=== PATIENT | male | born 1945 | race Caucasian/White ===

== ENCOUNTER 2017-07-21 12:43 | Observation (INO) ==
[2017-07-21] MEDS ORDERED: *HR* FentaNYL (PF) 100 MCG/2 ML VIAL IVP ONE (13:43)
[2017-07-21] MEDS ORDERED: Ondansetron 4 MG/2 ML VIAL IVP PRN (13:43)
--- NOTE | 2017-07-21 13:48 | Emergency Department Note ---
Disposition Clinical Impression: COPD exacerbation, Hypoxia, Weakness, Acute pericardial effusion Disposition: Admitted As Inpatient Condition: Fair Time of Disposition: 20:29 Male Urogenital HPI - General Chief complaint: ED Urogenital-Male Stated complaint: "my kidneys collapsed" Time Seen by Provider: 07/21/17 12:49 Source: patient Limitations: no limitations Nursing Notes Reviewed: Yes Vital Signs Reviewed: Yes - History of Present Illness HPI Narrative: 72-year-old male complains of shortness of breath with chest tightness not pressure, back and abdominal pain, fever, chills 2 days. Patient states he has burning with urination which increases his pain symptoms from 09/22-12/23. Patient states pain is around his kidney areas radiation down to his groin across the lower parts of his abdomen. Patient states pain is been constant and is got gradually worse over the past 3 days. Patient states he has renal insufficiency stage III, and COPD on home O2 2 L. Patient has had to increase his home O2 uses a 4 L via nasal cannula. - Related Data Home Medications Medication Instructions Recorded Confirmed Albuterol Sulfate [Ventolin Hfa] 18 gm IH DAILY 05/25/17 07/21/17 Amlodipine Besylate 2.5 mg PO DAILY 05/25/17 07/21/17 Aspirin [Lo-Dose Aspirin EC] 81 mg PO DAILY 05/25/17 07/21/17 Docusate [Colace] 100 mg PO BID 05/25/17 07/21/17 Ferrous Sulfate [Iron] 325 mg PO BID 05/25/17 07/21/17 Glimepiride [Amaryl] 2 mg PO 0800 05/25/17 07/21/17 Isosorbide MONOnitrate [Isosorbide 30 mg PO DAILY 05/25/17 07/21/17 Mononitrate] Lactulose 10 gm PO DAILY 05/25/17 07/21/17 Levothyroxine [Synthroid] 100 mcg PO 0630 05/25/17 07/21/17 Metformin HCl [Fortamet] 1,000 mg PO BID 05/25/17 07/21/17 Oxycodone HCl/Acetaminophen 1 each PO QID 05/25/17 07/21/17 [Percocet 7.5-325 mg Tablet] Baclofen 20 mg PO BID 07/21/17 07/21/17 Fluticasone Propionate Nasal 2 spr NS DAILY 07/21/17 07/21/17 [Flonase] Gabapentin [Neurontin] 400 mg PO TID 07/21/17 07/21/17 Lisinopril/Hydrochlorothiazide 1 tab PO BID 07/21/17 07/21/17 [Zestoretic 20-25 mg Tablet] Metoprolol [Lopressor] 25 mg PO BID 07/21/17 07/21/17 Pramipexole Di-HCl [Pramipexole 0.5 mg PO HS 07/21/17 07/21/17 Dihydrochloride] Ranitidine HCl [Acid [employer]] 150 mg PO BID 07/21/17 07/21/17 Previous Rx's Medication Instructions Recorded Lactobacillus [Culturelle] 1 each PO BID #6 cap.sprink 05/27/17 Allergies Allergy/AdvReac Type Severity Reaction Status Date / Time No Known Allergies Allergy Unverified 01/15/16 11:30 All systems ED: reviewed and negative except as stated. Review of Systems: As Per HPI Constitutional: Reports: fever, chills. Denies: weakness ENT ED: Denies: congestion Cardiovascular: Reports: dyspnea on exertion. Denies: chest pain Respiratory: Reports: dyspnea Gastrointestinal: Reports: abdominal pain Genitourinary: Reports: urgency, dysuria Musculoskeletal: Reports: back pain. Denies: neck pain Neurological: Denies: headache Endocrine: Reports: fatigue Past Medical History - Past Medical History Attestation: Yes The following information was validated with the patient. Source: patient, nursing notes reviewed Medical history: Reports: asthma, COPD, coronary artery disease, diabetes, hyperlipidemia, hypertension, myocardial infarction, thyroid disease, other Psychiatric history: Reports: no psych history - Social History Smoking Status: Former smoker Smokeless Tobacco Status: No Alcohol use: Reports: occasionally Drug use: Reports: none Physical Exam Vital Signs Temperature 97.8 F 07/21/17 12:45 Pulse Rate 100 07/21/17 12:45 Respiratory Rate 07/21/17 12:45 Blood Pressure 130/81 07/21/17 12:45 O2 Sat by Pulse Oximetry 95 07/21/17 12:45 Temperature 97.8 F 07/21/17 12:45 Pulse Rate 100 07/21/17 12:45 Respiratory Rate 22 07/21/17 12:45 Blood Pressure 130/81 07/21/17 12:45 O2 Sat by Pulse Oximetry 95 07/21/17 12:45 Oxygen Delivery Oxygen Delivery Room Air CONSTITUTIONAL: Almost Toxic-appearing diaphoretic well-nourished male; A&O X 3 , in an apparent distress with conversational. Patient has mild conversational dyspnea and breathing at a rate of 22 breaths per minute. Patient's tachycardic at 100 bpm afebrile 97.8. Blood pressure 130/81 and O2 sat 95% RA. Supplemental O2 ordered at 4 L/m via nasal cannula for tachypnea. HEAD: Normocephalic; atraumatic EYES: PERRL, no scleral icterus NOSE: The nose is normal in appearance without rhinorrhea NECK: No JVD or distended neck veins RESP: Normal chest excursion with respiration; breath sounds clear and equal bilaterally; no wheezes, rhonchi, or rales CARD: Regular rhythm, without murmurs, rub or gallop ABD: Rounded but not distended; no reproducible tenderness of the abdomen in any quadrant, soft, without rigidity, rebound or guarding,no pulsatile mass Back: Nontender to palpation CHEST: No pain with palpation SKIN: Normal for age and race; warm and dry without diaphoresis ; no apparent lesions EXTREMITIES: Pulses are 2 plus and equal times 4 extremities, no peripheral edema or calf muscle pain - General Limitations: no limitations General appearance: alert, anxious Course - Reevaluation(s) Reevaluation #1: Labs are clinically unremarkable. Chest x-ray negative for pneumonia. Patient' s urinalysis was negative. With no source of infection and patient is clearly short of breath and hypoxic patient will be assessed for PE. CTA chest ordered. Lowered patient's oxygen requirements at 2 L via nasal cannula from 4 L and patient is maintaining O2 sat of 100% on 2 L but continues to be tachypneic. Highly concerning for PE. Time: 14:38 Reevaluation #2: No abnormalities on VBG. No hypercapnia, no acidosis. Time: 14:45 - Consultations Consultation #1: Dr. Fernandez the hospitalist as accepted patient for admission to telemetry bed in stable condition. Time: 16:34 Vital Signs Temperature 97.8 F 07/21/17 12:45 Pulse Rate 100 07/21/17 12:45 Respiratory Rate 22 07/21/17 12:45 Blood Pressure 130/81 0508/18 12:45 O2 Sat by Pulse Oximetry 95 07/21/17 12:45 Temperature 97.7 F 07/21/17 18:56 Pulse Rate 100 07/21/17 18:56 Respiratory Rate 18 07/21/17 18:56 Blood Pressure 172/81 07/21/17 18:56 O2 Sat by Pulse Oximetry 95 07/21/17 18:56 Oxygen Delivery Oxygen Delivery Nasal Cannula Urogenital-Male - MDM Narrative Medical decision making narrative: Patient is urinary symptoms of dysuria with back pain radiating around to his groin associated fevers past 3 days and shortness of breath. Also has renal insufficiency. Patient is concerning for possible pyelonephritis, nephrolithiasis, COPD exacerbation with hypoxia having to increase his home O2 usage to 4 L from 2 that may be secondary to pulmonary embolism. CT abdomen and pelvis noncontrast ordered. Labs ordered. Once renal function is assessed patient will be going for CT of the chest if no issues. Duo neb therapy 3 and 125 IV Solu-Medrol ordered for COPD exacerbation. Patient is to tachypneic and tachycardic possibly making him SIRS positive if there is an increased WBC. Patient's high risk with multiple comorbidities. Current plan is isolated source of infection and initiate antibiotic therapy if one is found. Surprisingly patient's lab workup was clinically unremarkable. Patient's urinalysis was highly unlikely that have an infection due to lack of bacteria, was positive for microscopic RBCs, protein with squamous cell contamination. With the patient still being symptomatically short of breath and severely fatigued he was sent for CTA of the chest after negative chest x-ray, as well as CT abdomen and pelvis contrast to give insight for patient's generalized abdominal pain. Findings revealed a mild to moderate pericardial effusion, no PE, and abdominal CT showed some thickening of the urinary bladder wall. Bladder wall thickening may explain patient's discomfort with urinating. Lack of infection crisis concern for possible other possibly neoplastic process and recommend further investigation with cystoscopy. Patient's breathing has improved with DuoNeb therapy and dose of IV fentanyl. Patient's hypoxia was improved and is down to 2 L via nasal cannula maintaining O2 saturation greater than 94%. However, patient remains weak and shortness of breath increases with ambulation. Patient was not ambulated around the department because his standing up made him short of breath and is a fall risk to go home. Current recommendation is for admission for further evaluation until patient is back to his baseline. A flu swab was taken as well and awaiting results. Patient understands and agrees to treatment plan for admission. Dr. Fernandez the hospitalist as accepted patient for admission telemetry bed in stable condition. - Lab Data Lab results reviewed: Yes I reviewed the patient's lab results. Lab results narrative: Short CBC 07/21/17 Range/Units 13:36 WBC 10.4 (4.3-11.1) K/mcL Hgb 12.9 (12.9-16.9) g/dL Hct 37.6 (37.5-50.1) % Plt Count 358 (140-400) K/mcL Neutrophils # 8.0 (1.6-8.9) K/mcL BMP 07/21/17 Range/Units 13:36 Sodium 134 L (136-145) mEq/L Potassium 4.3 (3.5-5.1) mEq/L Chloride 98 (98-107) mEq/L Carbon Dioxide 25 (23-29) mEq/L BUN 19 (8-23) mg/dL Creatinine 1.20 (0.70-1.30) mg/dL Glucose 154 H (70-105) mg/dL Calcium 10.1 (8.6-10.3) mg/dL Cardiac Enzymes 07/21/17 Range/Units 13:36 Troponin I < 0.03 (< 0.04) ng/mL Liver Function 07/21/17 Range/Units 13:36 Total Bilirubin 0.7 (0.3-1.0) mg/dL Direct Bilirubin 0.1 (0.0-0.2) mg/dL AST 13 (13-39) Units/L ALT 12 (7-52) Units/L Alkaline Phosphatase 87 (34-104) Units/L Albumin 4.2 (3.5-5.7) g/dL Urine 07/21/17 Range/Units 13:54 Urine Color Yellow (Yellow) Urine Clarity Clear (Clear) Urine pH 6.5 (5.0-8.0) pH Units Ur Specific [place] 1.024 (1.010-1.025) Urine Protein 100 H (Neg-Trace) mg/dL Urine Glucose (UA) Normal (Normal) mg/dL Result diagrams: 07/21/17 13:36 07/21/17 13:36 Lab Results 07/21/17 07/21/17 07/21/17 Range/Units 13:36 13:36 13:36 WBC 10.4 (4.3-11.1) K/mcL RBC 4.40 (4.19-5.50) M/mcL Hgb 12.9 (12.9-16.9) g/dL Hct 37.6 (37.5-50.1) % MCV 85.5 (83.0-100.0) fL MCH 29.3 (28.0-33.3) pg MCHC 34.3 (31.6-35.5) g/dL RDW 13.3 (11.5-14.5) % Plt Count 358 (140-400) K/mcL MPV 9.0 L (9.4-12.4) fL Immature Gran % 0.5 (0-4) % Seg Neutrophils % 76.4 % Lymphocytes % 9.3 % Monocytes % 9.3 % Eosinophils % 3.8 % Basophils % 0.7 % Neutrophils # 8.0 (1.6-8.9) K/mcL Lymphocytes # 1.0 (0.6-4.6) K/mcL Monocytes # 1.0 (0.0-1.3) K/mcL Eosinophils # 0.4 (0.0-0.6) K/mcL Basophils # 0.1 (0.0-0.2) K/mcL VBG pH (7.32-7.42) pH Units VBG pCO2 (41-51) mmHg VBG pO2 (25-50) mmHg VBG HCO3 (21-27) mEq/L Sodium 134 L (136-145) mEq/L Potassium 4.3 (3.5-5.1) mEq/L Chloride 98 (98-107) mEq/L Carbon Dioxide 25 (23-29) mEq/L BUN 19 (8-23) mg/dL Creatinine 1.20 (0.70-1.30) mg/dL Est GFR ( Amer) > 60 (> 60) Est GFR (Non-Af Amer) 60 (> 60) BUN/Creatinine Ratio 16 (6-26) Glucose 154 H (70-105) mg/dL Calculated Osmolality 283 (280-300) Lactic Acid (0.5-2.2) mmol/L Calcium 10.1 (8.6-10.3) mg/dL Phosphorus 2.5 L (2.7-4.5) mg/dL Magnesium 1.6 (1.6-2.6) mg/dL Total Bilirubin 0.7 (0.3-1.0) mg/dL Direct Bilirubin 0.1 (0.0-0.2) mg/dL Indirect Bilirubin 0.6 (0.0-1.2) mg/dL AST 13 (13-39) Units/L ALT 12 (7-52) Units/L Alkaline Phosphatase 87 (34-104) Units/L Troponin I < 0.03 (< 0.04) ng/mL B-Natriuretic Peptide 20 (Less than 100) pg/mL Serum Total Protein 7.5 (6.4-8.9) g/dL Albumin 4.2 (3.5-5.7) g/dL Globulin 3.3 (2.4-3.5) g/dL Albumin/Globulin Ratio 1.3 (1.1-2.2) Lipase 13 (11-82) Units/L Urine Color (Yellow) Urine Clarity (Clear) Urine pH (5.0-8.0) pH Units Ur Specific [place] (1.010-1.025) Urine Protein (Neg-Trace) mg/dL Urine Glucose (UA) (Normal) mg/dL Urine Ketones (Negative) mg/dL Urine Blood (Negative) Urine Nitrite (Negative) Urine Bilirubin (Negative) Urine Urobilinogen (Normal) mg/dL Ur Leukocyte Esterase (Negative) Urine Microscopic RBC (0-3) per hpf Urine Microscopic WBC (0-3) per hpf Ur Squamous Epith Cells (None-Few) per lpf Urine Bacteria (None-Few) per hpf Hyaline Casts (None-Few) per lpf Ur Culture Indicated? (NO) 07/21/17 07/21/17 07/21/17 Range/Units 13:50 13:54 14:00 WBC (4.3-11.1) K/mcL RBC (4.19-5.50) M/mcL Hgb (12.9-16.9) g/dL Hct (37.5-50.1) % MCV (83.0-100.0) fL MCH (28.0-33.3) pg MCHC (31.6-35.5) g/dL RDW (11.5-14.5) % Plt Count (140-400) K/mcL MPV (9.4-12.4) fL Immature Gran % (0-4) % Seg Neutrophils % % Lymphocytes % % Monocytes % % Eosinophils % % Basophils % % Neutrophils # (1.6-8.9) K/mcL Lymphocytes # (0.6-4.6) K/mcL Monocytes # (0.0-1.3) K/mcL Eosinophils # (0.0-0.6) K/mcL Basophils # (0.0-0.2) K/mcL VBG pH 7.39 (7.32-7.42) pH Units VBG pCO2 44 (41-51) mmHg VBG pO2 29 (25-50) mmHg VBG HCO3 26 (21-27) mEq/L Sodium (136-145) mEq/L Potassium (3.5-5.1) mEq/L Chloride (98-107) mEq/L Carbon Dioxide (23-29) mEq/L BUN (8-23) mg/dL Creatinine (0.70-1.30) mg/dL Est GFR ( Amer) (> 60) Est GFR (Non-Af Amer) (> 60) BUN/Creatinine Ratio (6-26) Glucose (70-105) mg/dL Calculated Osmolality (280-300) Lactic Acid 1.4 (0.5-2.2) mmol/L Calcium (8.6-10.3) mg/dL Phosphorus (2.7-4.5) mg/dL Magnesium (1.6-2.6) mg/dL Total Bilirubin (0.3-1.0) mg/dL Direct Bilirubin (0.0-0.2) mg/dL Indirect Bilirubin (0.0-1.2) mg/dL AST (13-39) Units/L ALT (7-52) Units/L Alkaline Phosphatase (34-104) Units/L Troponin I (< 0.04) ng/mL B-Natriuretic Peptide (Less than 100) pg/mL Serum Total Protein (6.4-8.9) g/dL Albumin (3.5-5.7) g/dL Globulin (2.4-3.5) g/dL Albumin/Globulin Ratio (1.1-2.2) Lipase (11-82) Units/L Urine Color Yellow (Yellow) Urine Clarity Clear (Clear) Urine pH 6.5 (5.0-8.0) pH Units Ur Specific [place] 1.024 (1.010-1.025) Urine Protein 100 H (Neg-Trace) mg/dL Urine Glucose (UA) Normal (Normal) mg/dL Urine Ketones Trace H (Negative) mg/dL Urine Blood Negative (Negative) Urine Nitrite Negative (Negative) Urine Bilirubin Negative (Negative) Urine Urobilinogen Normal (Normal) mg/dL Ur Leukocyte Esterase Negative (Negative) Urine Microscopic RBC 3-5 H (0-3) per hpf Urine Microscopic WBC 0-3 (0-3) per hpf Ur Squamous Epith Cells Moderate H (None-Few) per lpf Urine Bacteria None Seen (None-Few) per hpf Hyaline Casts None Seen (None-Few) per lpf Ur Culture Indicated? NO (NO) - Radiology Data Radiology results reviewed: Yes I reviewed the patient's radiology results. Chest X-Ray 07/21/17 13:42 IMPRESSION: 1. No active pulmonary disease. D/ / Alberto Chaudhry MD / Alberto Chaudhry MD Interpreting Provider: Alberto Chaudhry MD Abdomen/Pelvis CT 07/21/17 14:16 IMPRESSION: No evidence of urolithiasis or hydronephrosis/ hydroureter. Relatively symmetric perinephric fat stranding is nonspecific. Correlate for ascending urinary tract infection. There is significant urinary bladder wall thickening; correlate for cystitis. Colonic diverticulosis without diverticulitis. Small pericardial effusion partially visualized. The findings at the L2-3 level can be seen in the setting of discitis - osteomyelitis or advanced degenerative change. D/ / Twan Thompson MD / Twan Thompson MD Interpreting Provider: Twan Thompson MD Chest CTA 07/21/17 14:36 IMPRESSION: No evidence of pulmonary embolism or acute pulmonary abnormality. Small to moderate pericardial effusion. D/ / Nickolas Chambers MD / Nickolas Chambers MD Interpreting Provider: Nickolas Chambers MD - EKG Data EKG attestation: Yes I reviewed and interpreted this EKG. EKG results narrative: EKG taken 07/21/2017 at 1309 hrs. shows sinus rhythm at a rate of 92 bpm with no acute ST elevations or depressions in any leads. Previous EKG for comparison very similar in comparison to today's EKG. Attestation Statement - Attestation Attestation: I, Jorgito Sim DO, examined this patient [id number] and my medical decision-making was reviewed with Dr. Caleb Frost, Resident Physician. I agree with the documented findings, disposition and treatment plan as described except to the extent set forth below. Please see my progress notes for details.
[2017-07-21] MEDS ORDERED: methylPREDNISolone 125 MG/2 ML VIAL IVP ONE (14:00)
[2017-07-21] MEDS ORDERED: Ipratropium/Albuterol Neb 3 ML IH ONE (14:00)
[2017-07-21 14:02] LABS: Basophils # 0.1 K/mcL (0.0-0.2); Basophils % 0.7 %; Eosinophils # 0.4 K/mcL (0.0-0.6); Eosinophils % 3.8 %; Hematocrit 37.6 % (37.5-50.1); Hemoglobin 12.9 g/dL (12.9-16.9); Immature Granulocytes % 0.5 % (0-4); Lymphocytes % 9.3 %; Mean Corpuscular HGB Conc 34.3 g/dL (31.6-35.5); Mean Corpuscular Hemoglobin 29.3 pg (28.0-33.3); Mean Corpuscular Volume 85.5 fL (83.0-100.0); Monocytes % 9.3 %; Platelet Count 358 K/mcL (140-400); Red Cell Distribution Width 13.3 % (11.5-14.5); Segmented Neutrophils % 76.4 %
[2017-07-21 14:07] LABS: VBG HCO3 26 mEq/L (21-27); VBG PCO2 44 mmHg (41-51); VBG PH 7.39 pH Units (7.32-7.42); VBG PO2 29 mmHg (25-50)
[2017-07-21] MEDS: 0.9 % Sodium Chloride 1,000 ML IVC SCH ×3 (14:11→16:36)
[2017-07-21 14:17] LABS: Troponin I < 0.03 ng/mL (< 0.04)
[2017-07-21 14:23] LABS: Alanine Aminotransferase 12 Units/L (7-52); Albumin 4.2 g/dL (3.5-5.7); Albumin/Globulin Ratio 1.3 (1.1-2.2); Alkaline Phosphatase 87 Units/L (34-104); Aspartate Amino Transferase 13 Units/L (13-39); BUN/Creatinine Ratio 16 (6-26); Bilirubin,Direct 0.1 mg/dL (0.0-0.2); Bilirubin,Indirect 0.6 mg/dL (0.0-1.2); Bilirubin,Total 0.7 mg/dL (0.3-1.0); Blood Urea Nitrogen 19 mg/dL (8-23); Calcium 10.1 mg/dL (8.6-10.3); Carbon Dioxide 25 mEq/L (23-29); Chloride 98 mEq/L (98-107); Globulin 3.3 g/dL (2.4-3.5); Glucose 154 mg/dL (70-105); Lipase 13 Units/L (11-82); Magnesium 1.6 mg/dL (1.6-2.6); Osmolality,Calculated 283 (280-300); Phosphorous 2.5 mg/dL (2.7-4.5); Potassium 4.3 mEq/L (3.5-5.1); Sodium 134 mEq/L (136-145); Total Protein 7.5 g/dL (6.4-8.9); eGFR For African Americans > 60 (> 60); eGFR For Non-African Americans 60 (> 60)
[2017-07-21 14:25] LABS: Bilirubin,Urine Negative (Negative); Blood,Urine Negative (Negative); Clarity,Urine Clear (Clear); Color,Urine Yellow (Yellow); Glucose,Urine (UA) Normal (Normal); Ketones,Urine Trace mg/dL (Negative); Leukocyte Esterase,Urine Negative (Negative); Nitrite,Urine Negative (Negative); PH,Urine 6.5 pH Units (5.0-8.0); Protein,Urine 100 mg/dL (Neg-Trace); Specific Gravity,Urine 1.024 (1.010-1.025); Urobilinogen,Urine Normal (Normal)
[2017-07-21 14:28] LABS: Bacteria,Urine None Seen per hpf (None-Few); Hyaline Casts,Urine None Seen per lpf (None-Few); Squamous Epithelial Cell,Urine Moderate per lpf (None-Few); WBC,Urine 0-3 per hpf (0-3)
[2017-07-21] MEDS ORDERED: Isovue-370 500 ML INFUS..BTL IV ONE (14:36)
[2017-07-21] MEDS ORDERED: 0.9 % Sodium Chloride 1,000 ML IVC ONE (14:50)
--- NOTE | 2017-07-21 16:43 | Emergency Department Note ---
Disposition Clinical Impression: COPD exacerbation, Hypoxia, Weakness, Acute pericardial effusion Disposition: Admitted As Inpatient Condition: Fair General Adult HPI - General Chief complaint: ED Urogenital-Male Stated complaint: "my kidneys collapsed" Time Seen by Provider: 07/21/17 12:49 Source: patient Limitations: no limitations - History of Present Illness Pain Scale: 4 - Related Data Home Medications Medication Instructions Recorded Confirmed Albuterol Sulfate [Ventolin Hfa] 18 gm IH DAILY 05/25/17 07/21/17 Amlodipine Besylate 2.5 mg PO DAILY 05/25/17 07/21/17 Aspirin [Lo-Dose Aspirin EC] 81 mg PO DAILY 05/25/17 07/21/17 Docusate [Colace] 100 mg PO BID 05/25/17 07/21/17 Ferrous Sulfate [Iron] 325 mg PO BID 05/25/17 07/21/17 Glimepiride [Amaryl] 2 mg PO 0800 05/25/17 07/21/17 Isosorbide MONOnitrate [Isosorbide 30 mg PO DAILY 05/25/17 07/21/17 Mononitrate] Lactulose 10 gm PO DAILY 05/25/17 07/21/17 Levothyroxine [Synthroid] 100 mcg PO 0630 05/25/17 07/21/17 Metformin HCl [Fortamet] 1,000 mg PO BID 05/25/17 07/21/17 Oxycodone HCl/Acetaminophen 1 each PO QID 05/25/17 07/21/17 [Percocet 7.5-325 mg Tablet] Baclofen 20 mg PO BID 07/21/17 07/21/17 Fluticasone Propionate Nasal 2 spr NS DAILY 07/21/17 07/21/17 [Flonase] Gabapentin [Neurontin] 400 mg PO TID 07/21/17 07/21/17 Lisinopril/Hydrochlorothiazide 1 tab PO BID 07/21/17 07/21/17 [Zestoretic 20-25 mg Tablet] Metoprolol [Lopressor] 25 mg PO BID 07/21/17 07/21/17 Pramipexole Di-HCl [Pramipexole 0.5 mg PO HS 07/21/17 07/21/17 Dihydrochloride] Ranitidine HCl [Acid Accounting Intern] 150 mg PO BID 07/21/17 07/21/17 Previous Rx's Medication Instructions Recorded Lactobacillus [Culturelle] 1 each PO BID #6 cap.huseyinink 05/27/17 Allergies Allergy/AdvReac Type Severity Reaction Status Date / Time No Known Allergies Allergy Unverified 01/15/16 11:30 Constitutional: Reports: fever, chills. Denies: weakness ENT ED: Denies: congestion Cardiovascular: Reports: dyspnea on exertion. Denies: chest pain Respiratory: Reports: dyspnea Gastrointestinal: Reports: abdominal pain Genitourinary: Reports: urgency, dysuria Musculoskeletal: Reports: back pain. Denies: neck pain Neurological: Denies: headache Endocrine: Reports: fatigue Past Medical History - Past Medical History Medical history: Reports: asthma, COPD, coronary artery disease, diabetes, hyperlipidemia, hypertension, myocardial infarction, thyroid disease, other Psychiatric history: Reports: no psych history - Social History Smoking Status: Former smoker Smokeless Tobacco Status: No Alcohol use: Reports: occasionally Drug use: Reports: none Physical Exam - General Limitations: no limitations General appearance: alert, anxious Course Vital Signs Temperature 97.8 F 07/21/17 12:45 Pulse Rate 100 07/21/17 12:45 Respiratory Rate 22 07/21/17 12:45 Blood Pressure 130/81 07/21/17 12:45 O2 Sat by Pulse Oximetry 95 07/21/17 12:45 Temperature 97.7 F 07/21/17 18:56 Pulse Rate 100 07/21/17 18:56 Respiratory Rate 18 07/21/17 20:32 Blood Pressure 172/81 07/21/17 18:56 O2 Sat by Pulse Oximetry 96 07/21/17 20:32 Oxygen Delivery Oxygen Delivery Nasal Cannula Medical Decision Making - Lab Data Result diagrams: 07/21/17 13:36 07/21/17 13:36 Lab Results 07/21/17 07/21/17 07/21/17 Range/Units 13:36 13:36 13:36 WBC 10.4 (4.3-11.1) K/mcL RBC 4.40 (4.19-5.50) M/mcL Hgb 12.9 (12.9-16.9) g/dL Hct 37.6 (37.5-50.1) % MCV 85.5 (83.0-100.0) fL MCH 29.3 (28.0-33.3) pg MCHC 34.3 (31.6-35.5) g/dL RDW 13.3 (11.5-14.5) % Plt Count 358 (140-400) K/mcL MPV 9.0 L (9.4-12.4) fL Immature Gran % 0.5 (0-4) % Seg Neutrophils % 76.4 % Lymphocytes % 9.3 % Monocytes % 9.3 % Eosinophils % 3.8 % Basophils % 0.7 % Neutrophils # 8.0 (1.6-8.9) K/mcL Lymphocytes # 1.0 (0.6-4.6) K/mcL Monocytes # 1.0 (0.0-1.3) K/mcL Eosinophils # 0.4 (0.0-0.6) K/mcL Basophils # 0.1 (0.0-0.2) K/mcL VBG pH (7.32-7.42) pH Units VBG pCO2 (41-51) mmHg VBG pO2 (25-50) mmHg VBG HCO3 (21-27) mEq/L Sodium 134 L (136-145) mEq/L Potassium 4.3 (3.5-5.1) mEq/L Chloride 98 (98-107) mEq/L Carbon Dioxide 25 (23-29) mEq/L BUN 19 (8-23) mg/dL Creatinine 1.20 (0.70-1.30) mg/dL Est GFR ( Amer) > 60 (> 60) Est GFR (Non-Af Amer) 60 (> 60) BUN/Creatinine Ratio 16 (6-26) Glucose 154 H (70-105) mg/dL Calculated Osmolality 283 (280-300) Lactic Acid (0.5-2.2) mmol/L Calcium 10.1 (8.6-10.3) mg/dL Phosphorus 2.5 L (2.7-4.5) mg/dL Magnesium 1.6 (1.6-2.6) mg/dL Total Bilirubin 0.7 (0.3-1.0) mg/dL Direct Bilirubin 0.1 (0.0-0.2) mg/dL Indirect Bilirubin 0.6 (0.0-1.2) mg/dL AST 13 (13-39) Units/L ALT 12 (7-52) Units/L Alkaline Phosphatase 87 (34-104) Units/L Troponin I < 0.03 (< 0.04) ng/mL B-Natriuretic Peptide 20 (Less than 100) pg/mL Serum Total Protein 7.5 (6.4-8.9) g/dL Albumin 4.2 (3.5-5.7) g/dL Globulin 3.3 (2.4-3.5) g/dL Albumin/Globulin Ratio 1.3 (1.1-2.2) Lipase 13 (11-82) Units/L Urine Color (Yellow) Urine Clarity (Clear) Urine pH (5.0-8.0) pH Units Ur Specific [place] (1.010-1.025) Urine Protein (Neg-Trace) mg/dL Urine Glucose (UA) (Normal) mg/dL Urine Ketones (Negative) mg/dL Urine Blood (Negative) Urine Nitrite (Negative) Urine Bilirubin (Negative) Urine Urobilinogen (Normal) mg/dL Ur Leukocyte Esterase (Negative) Urine Microscopic RBC (0-3) per hpf Urine Microscopic WBC (0-3) per hpf Ur Squamous Epith Cells (None-Few) per lpf Urine Bacteria (None-Few) per hpf Hyaline Casts (None-Few) per lpf Ur Culture Indicated? (NO) 07/21/17 07/21/17 07/21/17 Range/Units 13:50 13:54 14:00 WBC (4.3-11.1) K/mcL RBC (4.19-5.50) M/mcL Hgb (12.9-16.9) g/dL Hct (37.5-50.1) % MCV (83.0-100.0) fL MCH (28.0-33.3) pg MCHC (31.6-35.5) g/dL RDW (11.5-14.5) % Plt Count (140-400) K/mcL MPV (9.4-12.4) fL Immature Gran % (0-4) % Seg Neutrophils % % Lymphocytes % % Monocytes % % Eosinophils % % Basophils % % Neutrophils # (1.6-8.9) K/mcL Lymphocytes # (0.6-4.6) K/mcL Monocytes # (0.0-1.3) K/mcL Eosinophils # (0.0-0.6) K/mcL Basophils # (0.0-0.2) K/mcL VBG pH 7.39 (7.32-7.42) pH Units VBG pCO2 44 (41-51) mmHg VBG pO2 29 (25-50) mmHg VBG HCO3 26 (21-27) mEq/L Sodium (136-145) mEq/L Potassium (3.5-5.1) mEq/L Chloride (98-107) mEq/L Carbon Dioxide (23-29) mEq/L BUN (8-23) mg/dL Creatinine (0.70-1.30) mg/dL Est GFR ( Amer) (> 60) Est GFR (Non-Af Amer) (> 60) BUN/Creatinine Ratio (6-26) Glucose (70-105) mg/dL Calculated Osmolality (280-300) Lactic Acid 1.4 (0.5-2.2) mmol/L Calcium (8.6-10.3) mg/dL Phosphorus (2.7-4.5) mg/dL Magnesium (1.6-2.6) mg/dL Total Bilirubin (0.3-1.0) mg/dL Direct Bilirubin (0.0-0.2) mg/dL Indirect Bilirubin (0.0-1.2) mg/dL AST (13-39) Units/L ALT (7-52) Units/L Alkaline Phosphatase (34-104) Units/L Troponin I (< 0.04) ng/mL B-Natriuretic Peptide (Less than 100) pg/mL Serum Total Protein (6.4-8.9) g/dL Albumin (3.5-5.7) g/dL Globulin (2.4-3.5) g/dL Albumin/Globulin Ratio (1.1-2.2) Lipase (11-82) Units/L Urine Color Yellow (Yellow) Urine Clarity Clear (Clear) Urine pH 6.5 (5.0-8.0) pH Units Ur Specific [place] 1.024 (1.010-1.025) Urine Protein 100 H (Neg-Trace) mg/dL Urine Glucose (UA) Normal (Normal) mg/dL Urine Ketones Trace H (Negative) mg/dL Urine Blood Negative (Negative) Urine Nitrite Negative (Negative) Urine Bilirubin Negative (Negative) Urine Urobilinogen Normal (Normal) mg/dL Ur Leukocyte Esterase Negative (Negative) Urine Microscopic RBC 3-5 H (0-3) per hpf Urine Microscopic WBC 0-3 (0-3) per hpf Ur Squamous Epith Cells Moderate H (None-Few) per lpf Urine Bacteria None Seen (None-Few) per hpf Hyaline Casts None Seen (None-Few) per lpf Ur Culture Indicated? NO (NO) Attestation Statement - Attestation Attestation: I, Jorgito Sim DO, examined this patient [id number] and my medical decision-making was reviewed with Dr. Caleb Frost, Resident Physician. I agree with the documented findings, disposition and treatment plan as described except to the extent set forth below. Please see my progress notes for details. 72-year-old male presents to the emergency room with generalized malaise and pain in his abdomen. Patient has had these symptoms on and off the last several days. He is also following she has been short of breath. Patient has underlying cardiac and pulmonary related disease including COPD. Patient denies any specific chest pain he has persistently worsening shortness of breath. He denies any nausea vomiting or diarrhea. He does have colicky abdominal pain at this point. There is no point tenderness guarding or rigidity noted on exam. His lungs were intermittently wheezing on presentation but responded appropriately to breathing treatments and steroids this time. Patient does not have any focal signs of infection based on physical exam. He has slight pitting edema in the bilateral lower extremities but no acute signs of fluid overload or concern for deep venous thrombosis. Patient moves all 4 of his extremities without any difficulty or symptoms. He is alert she is oriented he speaks in full sentences oropharynx is patent trachea is midline. Patient has no stridor no trismus. He has full range of motion of the neck with no meningeal-like symptoms. Cranial nerves II through XII are grossly intact. There is no neuromotor deficits or ataxia noted on exam. Patient says that he feels he very weak and tired. Patient does not appear to be focally toxic but he does appear to be ill and uncomfortable. Fluid resuscitation along with pain medication will be given. Antibiotics will be held until we have the source of her treating. Patient will most certainly require admission and definitive management is established. CT angiography the chest CT the abdomen along with CBC chemistry EKG liver function testing urinalysis will be completed at this time. Patient was informed of the plan is comfortable with this medical intervention at this point. See detailed documentation of physical exam, medical intervention, medical decision-making and disposition of the resident physician's note. 1625 Patient found to have a [id number] pericardial effusion with no signs of right ventricular collapse. Could be the source of the patient's shortness of breath associated with does not account for the generalized malaise and symptoms. Influenza swab was ordered at this point. Troponin is negative. BNP is still pending. The remainder of his laboratory workup is unremarkable this time. CT imaging the abdomen does not show any acute signs of infectious etiology or trauma. Patient has sligh thickening to the bladder but no specific outlet obstruction or signs of renal stone. After lengthy discussion at the bedside was determined the patient will require admission for unknown etiology to the generalized malaise and shortness of breath. Suspicion is possible pericardial effusion versus infectious etiology. No acute signs of myositis myocarditis or endocarditis based on negative troponins this point the patient will need further workup and management. Patient will have the influenza swab collected this point admission process to be established. Hospitalist Dr. olivarez reviewed the case with the resident physician had no other recommendations or concerns at this time. Patient otherwise is been hemodynamically stable resting more comfortably in the bed. Etiology is unknown at this point but suspicion is for possible fluid overload and cardiac motility related issues secondary to the pericardial effusion. Patient otherwise clinically stable and does not show any acute signs of JVD or other etiology at this point. Patient will be admitted for definitive management of this time. Fluid was provided the patient here. Bedside echocardiogram was completed by point of care presentation. There is a slight pericardial effusion cardiac motion appears to be stable based on emergency room ultrasound. IVC was collapsible with inspirations of fluid resuscitation was given. Patient will be admitted for definitive management
--- NOTE | 2017-07-21 18:27 | Internal Med History&Physical ---
Date of Encounter: 07/21/17 Time of Encounter: 17:00 Internal Medicine - H&P: HPI Chief complaint: Dysuria History of present illness: Patient is a 72-year-old male with past medical history significant for degenerative disc disease, asthma, COPD, coronary artery disease, diabetes, hyperlipidemia, hypertension, myocardial infarction and thyroid disease who presented to the ER due to acute on chronic lower back pain and dysuria. Patient reports a 2 day history of dysuria but denies any hematuria or urinary frequency. In addition patient also complains of acute on chronic lower back pain; he does have a history of degenerative disc disease per report. In the ER, lab work up is unremarkable. CT of the chest did show small to moderate pericardial effusion. CT of the abdomen/pelvis showed significant urinary bladder wall thickening; urinalysis negative for pyuria. Patient will be admitted to medical surgical floor for further workup. Past Med Surg Social Fam HX - Past Medical History Medical history: asthma, COPD, coronary artery disease, diabetes, hyperlipidemia , hypertension, myocardial infarction, thyroid disease, other Psychiatric history: no psych history - Social History Smoking Status: Former smoker Smokeless Tobacco Status: No Alcohol use: occasionally Drug use: none - Additional Family History Additional family history: Not contributory Internal Medicine - H&P: Meds Albuterol Sulfate [Ventolin Hfa] 18 gm IH DAILY 05/25/17 [History] Amlodipine Besylate 2.5 mg PO DAILY 05/25/17 [History] Aspirin [Lo-Dose Aspirin EC] 81 mg PO DAILY 05/25/17 [History] Docusate [Colace] 100 mg PO BID 05/25/17 [History] Ferrous Sulfate [Iron] 325 mg PO BID 05/25/17 [History] Glimepiride [Amaryl] 2 mg PO 0800 05/25/17 [History] Isosorbide MONOnitrate [Isosorbide Mononitrate] 30 mg PO DAILY 05/25/17 [History ] Lactulose 10 gm PO DAILY 05/25/17 [History] Levothyroxine [Synthroid] 100 mcg PO 0630 05/25/17 [History] Metformin HCl [Fortamet] 1,000 mg PO BID 05/25/17 [History] Oxycodone HCl/Acetaminophen [Percocet 7.5-325 mg Tablet] 1 each PO QID 05/25/17 [History] Lactobacillus [Culturelle] 1 each PO BID #6 cap.sprink 05/27/17 [Rx] Baclofen 20 mg PO BID 07/21/17 [History] Fluticasone Propionate Nasal [Flonase] 2 spr NS DAILY 07/21/17 [History] Gabapentin [Neurontin] 400 mg PO TID 07/21/17 [History] Lisinopril/Hydrochlorothiazide [Zestoretic 20-25 mg Tablet] 1 tab PO BID [History] Metoprolol [Lopressor] 25 mg PO BID 07/21/17 [History] Pramipexole Di-HCl [Pramipexole Dihydrochloride] 0.5 mg PO HS 07/21/17 [History] Ranitidine HCl [Acid Surgical Garment Fitter] 150 mg PO BID 07/21/17 [History] 3 Allergy/AdvReac Type Severity Reaction Status Date / Time No Known Allergies Allergy Unverified 01/15/16 11:30 All Systems PM: A 10-system review of systems was performed and is negative for pertinent findings except as documented above in the HPI. - Constitutional Vitals: Temp Pulse Resp BP Pulse Ox 97.8 F 98 20 129/71 97 07/21/17 12:45 07/21/17 16:39 07/21/17 17:48 07/21/17 17:48 07/21/17 16:39 General appearance: Present: A&O X 3, no acute distress - Eye Eye exam: Present: normal appearance - ENT ENT exam: Present: mucous membranes moist - Respiratory Respiratory exam: Present: CTAB. Absent: respiratory distress, rhonchi, wheezes - Cardiovascular Cardiovascular exam: Present: RRR, +S1, +S2. Absent: diastolic murmur, gallop, rubs, systolic murmur - GI/Abdominal GI/Abdominal exam: Present: normal bowel sounds, soft, no peritoneal signs. Absent: distended, tenderness - Extremities Exam Extremities exam: Absent: pedal edema - Neurological Exam Neurological exam: Present: oriented X3 - Psychiatric Psychiatric exam: Present: normal mood - Skin Skin exam: Present: normal color Internal Med - H&P Results - Labs CBC & Chem 7: 07/21/17 13:36 07/21/17 13:36 - Assessment and plan (1) Pericardial effusion Current Visit: Yes Status: Acute Assessment and plan: CT of the chest did show small to moderate pericardial effusion. Patient is in no acute respiratory distress and on baseline O2 supplemental oxygenation requirement Will order echocardiogram and monitor on telemetry (2) Chronic low back pain Current Visit: Yes Status: Acute Assessment and plan: Will continue home pain medications Qualifiers: Qualified Code(s): M54.5 - Low back pain; G89.29 - Other chronic pain; G89.29 - Other chronic pain (3) Hypothyroid Current Visit: Yes Status: Acute Assessment and plan: Continue home dose of levothyroxine Qualifiers: Hypothyroidism type: unspecified Qualified Code(s): E03.9 - Hypothyroidism , unspecified (4) Diabetes Current Visit: Yes Status: Acute Assessment and plan: Continue home medications Qualifiers: Chronic kidney disease stage: unspecified stage Qualified Code(s): E08.22 - Diabetes mellitus due to underlying condition with diabetic chronic kidney disease; Z79.4 - terminal make up operator (current) use of insulin; Z79.4 - retirement (current ) use of insulin; Z79.4 - retirement (current) use of insulin; Z79.4 - terminal make up operator (current) use of insulin (5) Hypertension Current Visit: No Status: Chronic Assessment and plan: Blood pressure controlled; continue home medications Qualifiers: Hypertension type: essential hypertension Qualified Code(s): I10 - Essential (primary) hypertension (6) DVT prophylaxis Current Visit: Yes Status: Acute Assessment and plan: Heparin subcutaneous - Time Spent With Patient Total time spent is greater than 50% in coordination of care (as documented) at patient's floor/unit and/or counseling patient:
[2017-07-21] MEDS ORDERED: Naloxone 0.4 MG/ML INJ IVP PRN (18:37)
[2017-07-21] MEDS ORDERED: *HR* Dextrose 50 % in Water (Syg) 50 ML SYRINGE IVP PRN (20:15)
[2017-07-21] MEDS ORDERED: D5% in Water 1,000 ML IVC PRN (20:15)
[2017-07-21] MEDS ORDERED: Dextrose Gel 15 GM/37.5 ML TUBE PO PRN ×2 (20:15)
[2017-07-21] MEDS: Ipratropium/Albuterol Neb 3 ML IH PRN (20:30)
[2017-07-21] MEDS: *HR* OxyCODONE/APAP 7.5/325 TABLET PO SCH (20:56)
[2017-07-21] MEDS: Famotidine 20 MG TABLET PO SCH (20:57)
[2017-07-21] MEDS: Gabapentin 400 MG CAPSULE PO SCH (20:57)
[2017-07-21] MEDS ORDERED: Insulin LISPRO 300 UNITS/3 ML VIAL SQ SCH (21:00)
[2017-07-21] MEDS: Lactobacillus 1 EACH CAP.SPRINK PO SCH (21:50)
[2017-07-22] MEDS: methylPREDNISolone 125 MG/2 ML VIAL IVP SCH ×2 (00:12→08:36)
[2017-07-22] MEDS: Ipratropium/Albuterol Neb 3 ML IH PRN (03:02)
[2017-07-22 06:06] LABS: Basophils % 0.1 %; Hematocrit 35.3 % (37.5-50.1); Hemoglobin 12.6 g/dL (12.9-16.9); Immature Granulocytes % 0.7 % (0-4); Lymphocytes # 0.5 K/mcL (0.6-4.6); Lymphocytes % 4.4 %; Mean Corpuscular HGB Conc 35.7 g/dL (31.6-35.5); Mean Corpuscular Hemoglobin 30.3 pg (28.0-33.3); Mean Corpuscular Volume 84.9 fL (83.0-100.0); Mean Platelet Volume 8.9 fL (9.4-12.4); Monocytes # 0.2 K/mcL (0.0-1.3); Monocytes % 1.3 %; Neutrophils # 10.7 K/mcL (1.6-8.9); Nucleated Red Blood Cells 0.2 /100 WBC (0); Platelet Count 373 K/mcL (140-400); Red Blood Count 4.16 M/mcL (4.19-5.50); Red Cell Distribution Width 13.2 % (11.5-14.5); Segmented Neutrophils % 93.5 %
[2017-07-22 06:22] LABS: BUN/Creatinine Ratio 21 (6-26); Blood Urea Nitrogen 25 mg/dL (8-23); Calcium 9.6 mg/dL (8.6-10.3); Carbon Dioxide 21 mEq/L (23-29); Chloride 100 mEq/L (98-107); Glucose 242 mg/dL (70-105); Osmolality,Calculated 282 (280-300); Potassium 4.3 mEq/L (3.5-5.1); Sodium 130 mEq/L (136-145); eGFR For African Americans > 60 (> 60); eGFR For Non-African Americans 59 (> 60)
[2017-07-22] MEDS: Famotidine 20 MG TABLET PO SCH (08:34)
[2017-07-22] MEDS: *HR* OxyCODONE/APAP 7.5/325 TABLET PO SCH (08:34)
[2017-07-22] MEDS: Gabapentin 400 MG CAPSULE PO SCH (08:35)
[2017-07-22] MEDS: Lactobacillus 1 EACH CAP.SPRINK PO SCH (08:35)
[2017-07-22] MEDS: Insulin LISPRO 300 UNITS/3 ML VIAL SQ SCH ×2 (08:36→11:38)
[2017-07-22] MEDS ORDERED: Aspirin Enteric Coated 81 MG Tablet PO SCH (09:00)
[2017-07-22] MEDS ORDERED: Lactulose Oral Soln 20 GM/30 ML UDC PO SCH (09:00)
[2017-07-22] MEDS ORDERED: Isosorbide MONOnitrate (24 HR) 30 MG TAB.ER.24H PO SCH (09:00)
[2017-07-22] MEDS ORDERED: Fluticasone Propionate Nasal 50 MCG/SPRAY BOTTLE NS SCH (09:00)
[2017-07-22] MEDS ORDERED: amLODIPine 5 MG TABLET PO SCH (09:00)
--- NOTE | 2017-07-22 10:01 | Internal Med Progress Note ---
Date of Encounter: 07/22/17 Time of Encounter: 10:00 - Assessment and plan (1) Pericardial effusion Status: Acute Assessment and plan: CT of the chest did show small to moderate pericardial effusion. Echo showed small pericardial effusion with no tamponade. Spoke with CT surgery who recommend no surgical intervention (2) Complicated UTI (urinary tract infection) Status: Acute Assessment and plan: pt says his dysuira symptoms have reolsved. Urinalysis showed few WBC. Will discharge on po ciprofloxacin (3) Hypertension Status: Chronic Assessment and plan: Blood pressure controlled; continue home medications Qualifiers: Hypertension type: essential hypertension Qualified Code(s): I10 - Essential (primary) hypertension (4) Hypothyroid Status: Acute Assessment and plan: Continue home dose of levothyroxine Qualifiers: Hypothyroidism type: unspecified Qualified Code(s): E03.9 - Hypothyroidism , unspecified (5) Diabetes Status: Acute Assessment and plan: Continue home medications Qualifiers: Chronic kidney disease stage: unspecified stage (6) Chronic low back pain Status: Acute Assessment and plan: Will continue home pain medications Qualifiers: Qualified Code(s): M54.5 - Low back pain; G89.29 - Other chronic pain; G89.29 - Other chronic pain (7) DVT prophylaxis Status: Acute Assessment and plan: Heparin subcutaneous - Time Spent With Patient Total time spent is greater than 50% in coordination of care (as documented) at patient's floor/unit and/or counseling patient: - Subjective Interval history: No acute events overnight - Constitutional Vitals: Temp Pulse Resp BP Pulse Ox 97.6 F 106 18 157/84 97 07/22/17 06:51 07/22/17 06:51 07/22/17 06:51 07/22/17 06:51 07/22/17 06:51 General appearance: Present: A&O X 3, no acute distress - Head Head exam: Present: atraumatic, normocephalic - Eye Eye exam: Present: PERRL, conjuntiva pink, sclera anicteric Pupils: Present: PERRL - Neck Neck exam general surgery: Present: supple, trachea midline. Absent: lymphadenopathy - Respiratory Respiratory exam: Present: CTAB. Absent: accessory muscle use, rales, rhonchi, wheezes - Cardiovascular Cardiovascular exam: Present: RRR, +S1, +S2. Absent: diastolic murmur, gallop, rubs, systolic murmur - GI/Abdominal GI/Abdominal exam: Present: normal bowel sounds, soft, no peritoneal signs. Absent: distended, tenderness - Extremities Exam Extremities exam: Present: warm, radial pulses palpable and symmetrical. Absent : calf tenderness, cyanotic, pedal edema - Neurological Exam Neurological exam: Present: CN II-XII intact, oriented X3, no focal deficits. Absent: pronater drift, facial droop, speech deficit - Skin Skin exam: Present: dry, intact Internal Medicine: Result - Labs CBC & Chem 7: 07/22/17 05:30 07/22/17 05:30 Labs: Short CBC 07/22/17 Range/Units 05:30 WBC 11.4 H (4.3-11.1) K/mcL Hgb 12.6 L (12.9-16.9) g/dL Hct 35.3 L (37.5-50.1) % Plt Count 373 (140-400) K/mcL Neutrophils # 10.7 H (1.6-8.9) K/mcL BMP 07/22/17 05:30 Sodium 130 L Potassium 4.3 Chloride 100 Carbon Dioxide 21 L BUN 25 H Creatinine 1.21 Glucose 242 H Calcium 9.6 - Impressions Impressions Echocardiogram 07/22/17 08:00 Impressions: LVEF 60-65%. Normal LV chamber size, wall thickness and function. Mild left ventricular diastolic dysfunction. Normal right ventricular structure and function. No evidence of pulmonary hypertension. There is a small pericardial effusion present. There is no echocardiographic evidence of tamponade. Left Ventricular Wall Motion: Rest Echo Findings All wall segments showed normal motion. Findings: Study Quality * Technically sub-optimal due to poor echocardiographic windows. ECG Findings * Normal sinus rhythm. Left Ventricle * LVEF 60-65%. * Normal LV chamber size, wall thickness and function. * Mild left ventricular diastolic dysfunction. Right Ventricle * Normal right ventricular structure and function. Left Atrium * Mildly dilated left atrium. Right Atrium * Normal right atrial size. Aortic Valve * Trileaflet aortic valve with normal function. * No aortic regurgitation. * No aortic stenosis. Mitral Valve * Normal mitral valve structure and function. * No mitral regurgitation. * No mitral stenosis. Tricuspid Valve * Normal tricuspid valve structure and function. * Trace tricuspid regurgitation. * No evidence of pulmonary hypertension. Pulmonic Valve * Pulmonic valve not well visualized. * No pulmonic regurgitation. Aorta * Normally sized aortic root. Pericardium * There is a small pericardial effusion present. * There is no echocardiographic evidence of tamponade. IVC * Normal IVC dimensions and inspiratory collapse. Pulmonary Artery * Normal visualized portions of the main pulmonary artery. Consult Discharge Plan - Plan Instructions: Diabetes Mellitus Type 2 in Adults (DC), Chronic Obstructive Pulmonary Disease (DC) Referrals: Debra Bullock, ESCALATOR ATTENDANT [Advanced Practice Nurse] - 07/28/17 3:00 pm Prescriptions: Ciprofloxacin HCl [Cipro] 500 mg PO BID 3 Days #6 tablet predniSONE [PredniSONE] 40 mg PO DAILY #5 tablet
[2017-07-22] MEDS ORDERED: Ipratropium/Albuterol Neb 3 ML ONE (10:17)
--- NOTE | 2017-07-22 10:25 | Discharge Summary ---
Date of Encounter: 07/22/17 Time of Encounter: 10:00 - Discharge Diagnosis (1) Pericardial effusion Priority: Primary Status: Acute Assessment and Plan: CT of the chest did show small to moderate pericardial effusion. Echo showed small pericardial effusion with no tamponade. Spoke with CT surgery who recommend no surgical intervention. Discharged today in a stable condition (2) Complicated UTI (urinary tract infection) Priority: Secondary Status: Acute Assessment and Plan: pt says his dysuria symptoms have reolsved. Urinalysis showed few WBC. Will discharge on po ciprofloxacin (3) Hypertension Priority: Secondary Status: Chronic Assessment and Plan: Blood pressure controlled; continue home medications Qualifiers: Hypertension type: essential hypertension Qualified Code(s): I10 - Essential (primary) hypertension (4) Hypothyroid Priority: Secondary Status: Acute Assessment and Plan: Continue home dose of levothyroxine Qualifiers: Hypothyroidism type: unspecified Qualified Code(s): E03.9 - Hypothyroidism , unspecified (5) Diabetes Priority: Secondary Status: Acute Assessment and Plan: Continue home medications Qualifiers: Chronic kidney disease stage: unspecified stage (6) Chronic low back pain Priority: Secondary Status: Acute Assessment and Plan: Will continue home pain medications Qualifiers: Qualified Code(s): M54.5 - Low back pain; G89.29 - Other chronic pain; G89.29 - Other chronic pain (7) DVT prophylaxis Priority: Secondary Status: Acute Hospital course: Mr. Quintana is a 72 year old male - Time Spent with Patient Total time spent providing and/or coordinating discharge services: - Discharge Medications Prescriptions: Ciprofloxacin HCl [Cipro] 500 mg PO BID 3 Days #6 tablet predniSONE [PredniSONE] 40 mg PO DAILY #5 tablet Home Medications: Albuterol Sulfate [Ventolin Hfa] 18 gm IH DAILY 05/25/17 [History] Amlodipine Besylate 2.5 mg PO DAILY 05/25/17 [History] Aspirin [Lo-Dose Aspirin EC] 81 mg PO DAILY 05/25/17 [History] Docusate [Colace] 100 mg PO BID 05/25/17 [History] Ferrous Sulfate [Iron] 325 mg PO BID 05/25/17 [History] Glimepiride [Amaryl] 2 mg PO 0800 05/25/17 [History] Isosorbide MONOnitrate [Isosorbide Mononitrate] 30 mg PO DAILY 05/25/17 [History ] Lactulose 10 gm PO DAILY 05/25/17 [History] Levothyroxine [Synthroid] 100 mcg PO 0630 05/25/17 [History] Metformin HCl [Fortamet] 1,000 mg PO BID 05/25/17 [History] Oxycodone HCl/Acetaminophen [Percocet 7.5-325 mg Tablet] 1 each PO QID 05/25/17 [History] Lactobacillus [Culturelle] 1 each PO BID #6 cap.sprink 05/27/17 [Rx] Baclofen 20 mg PO BID 07/21/17 [History] Fluticasone Propionate Nasal [Flonase] 2 spr NS DAILY 07/21/17 [History] Gabapentin [Neurontin] 400 mg PO TID 07/21/17 [History] Lisinopril/Hydrochlorothiazide [Zestoretic 20-25 mg Tablet] 1 tab PO BID [History] Metoprolol [Lopressor] 25 mg PO BID 07/21/17 [History] Pramipexole Di-HCl [Pramipexole Dihydrochloride] 0.5 mg PO HS 07/21/17 [History] Ranitidine HCl [Acid [employer]] 150 mg PO BID 07/21/17 [History] Ciprofloxacin HCl [Cipro] 500 mg PO BID 3 Days #6 tablet 07/22/17 [Rx] predniSONE [PredniSONE] 40 mg PO DAILY #5 tablet 07/22/17 [Rx] Allergies/Adverse Reactions: 3 Allergy/AdvReac Type Severity Reaction Status Date / Time No Known Allergies Allergy Unverified 01/15/16 11:30 Date of admission: 07/21/17 16:44 Primary care physician: Cory Sanders MD Consults: 07/22/17 09:57 Consult to Cardiothoracic Surgery [CONS] Routine Consulting Provider: Cardiothoracic Surgery Laila Reason for Consult: pericardial effusion Call Completed: Yes - Constitutional Vitals: Temp Pulse Resp BP Pulse Ox 97.6 F 106 18 157/84 97 07/22/17 06:51 07/22/17 06:51 07/22/17 06:51 07/22/17 06:51 07/22/17 06:51 General appearance: Present: A&O X 3, no acute distress - Head Head exam: Present: atraumatic, normocephalic - Eye Eye exam: Present: PERRL, conjuntiva pink, sclera anicteric Pupils: Present: PERRL - Neck Neck exam general surgery: Present: supple, trachea midline. Absent: lymphadenopathy - Respiratory Respiratory exam: Present: CTAB. Absent: accessory muscle use, rales, rhonchi, wheezes - Cardiovascular Cardiovascular exam: Present: RRR, +S1, +S2. Absent: diastolic murmur, gallop, rubs, systolic murmur - GI/Abdominal GI/Abdominal exam: Present: normal bowel sounds, soft, no peritoneal signs. Absent: distended, tenderness - Extremities Exam Extremities exam: Present: warm, radial pulses palpable and symmetrical. Absent : calf tenderness, cyanotic, pedal edema - Neurological Exam Neurological exam: Present: CN II-XII intact, oriented X3, no focal deficits. Absent: pronater drift, facial droop, speech deficit - Skin Skin exam: Present: dry, intact - Patient Status Disposition: Home, Self-Care Condition: Fair - Discharge Instructions Instructions: Diabetes Mellitus Type 2 in Adults (DC), Chronic Obstructive Pulmonary Disease (DC) Follow Up With: Debra Bullock, MOVIE WRITER [Advanced Practice Nurse] - 07/28/17 3:00 pm
[2017-07-22 10:36] VITALS: BP 151/85
[2017-07-22] MEDS ORDERED: cefTRIAXone 2,000 MG in Water for inj. (sterile) 20 ML 20 ML IVP SCH (11:00)
--- NOTE | 2017-07-22 13:02 | Electrocardiograph Report ---
[facility] Test Date: 2017-07-21 Pat Name: Rizwana Quintana Department: 103 Room: 2A37 Gender: M Clinical Manager Home Care: : 1945 Requested By: Caleb Frost Order Number: [id number] Reading MD: Guy Mary MD Measurements Intervals [place] Rate: 92 P: 45 LA: 141 QRS: 20 QRSD: 98 T: 50 QT: 338 QTc: 388 Interpretive Statements SINUS RHYTHM POSSIBLE ANTERIOR MYOCARDIAL INFARCTION [30 ms Q WAVE IN V3/V4, OR R < 0.2 mV IN V4], OF INDETERMINATE AGE Electronically Signed On 07-22-2017 13:00:32 EDT by Guy Mary MD
[2017-07-22] MEDS ORDERED: Ipratropium/Albuterol Neb 3 ML IH SCH (16:00)
[2017-07-23] MEDS ORDERED: predniSONE 20 MG TABLET PO SCH (09:00)
== END 2017-07-22 12:37 | disposition home or self-care (01) ==
LOC: 2ANU 12:43 → EMEROO 12:43 → 2ANU 17:45
PROVIDERS: ADMIT Hospitalist; ATTEND Hospitalist

== ENCOUNTER 2020-02-06 16:58 | Inpatient (IN) ==
[2020-02-06] MEDS ORDERED: Ondansetron ODT 4 MG TAB.RAPDIS SL PRN (19:21)
[2020-02-06] MEDS ORDERED: Naloxone 0.4 MG/ML INJ IVP PRN (19:21)
[2020-02-06] MEDS ORDERED: Acetaminophen 325 MG TABLET PO PRN (19:21)
[2020-02-06] MEDS ORDERED: Furosemide 40 MG/4 ML VIAL IVP ONE (19:26)
[2020-02-06] MEDS ORDERED: D5% in Water 1,000 ML IVC PRN (19:26)
[2020-02-06] MEDS ORDERED: *HR* Dextrose 50 % in Water (Vial) 50 ML VIAL IVP PRN (19:26)
[2020-02-06] MEDS ORDERED: Dextrose Gel 15 GM/37.5 ML TUBE PO PRN ×2 (19:26)
[2020-02-06] MEDS: Insulin LISPRO 300 UNITS/3 ML VIAL SQ SCH (20:49)
[2020-02-06] MEDS ORDERED: Perflutren Lipid Microsphere 1.3 ML in 0.9 % Sodium Chloride 8.7 ML IVP PRN (21:08)
[2020-02-06] MEDS: MethylPREDNISolone 40 MG/ML VIAL IVP SCH (23:34)
[2020-02-07 02:40] LABS: Hematocrit 30.3 % (37.5-50.1); INR 1.2; Mean Corpuscular HGB Conc 29.7 g/dL (31.6-35.5); Mean Corpuscular Hemoglobin 27.7 pg (28.0-33.3); Mean Corpuscular Volume 93.2 fL (83.0-100.0); Mean Platelet Volume 9.1 fL (9.4-12.4); Platelet Count 262 K/mcL (140-400); Prothrombin Time 13.3 Seconds (9.4-12.1); Red Blood Count 3.25 M/mcL (4.19-5.50); White Blood Count 9.9 K/mcL (4.3-11.1)
[2020-02-07 02:57] LABS: Calcium 9.9 mg/dL (8.6-10.3); Magnesium 1.7 mg/dL (1.6-2.6); Phosphorous 4.1 mg/dL (2.7-4.5); Potassium 4.8 mEq/L (3.5-5.1)
[2020-02-07 03:10] LABS: Thyroid Stimulating Hormone 2.395 mcIU/mL (0.340-5.600)
[2020-02-07] MEDS ORDERED: Albuterol 2.5 MG/3 ML NEBULIZER IH PRN (07:22)
[2020-02-07] MEDS: MethylPREDNISolone 40 MG/ML VIAL IVP SCH ×3 (07:45→23:25)
[2020-02-07] MEDS: Insulin LISPRO 300 UNITS/3 ML VIAL SQ SCH ×3 (07:46→17:51)
[2020-02-07] MEDS: Ipratropium/Albuterol Neb 3 ML IH SCH ×5 (08:06→23:33)
[2020-02-07] MEDS: Furosemide 40 MG/4 ML VIAL IVP SCH (08:28)
[2020-02-07] MEDS: Pantoprazole 40 MG VIAL IVP SCH (08:29)
[2020-02-07] MEDS: cefTRIAXone 1,000 MG in 0.9 % Sodium Chloride Mini Bag 100 ML IVPB SCH (08:29)
[2020-02-07] MEDS: carvediloL 25 MG TABLET PO SCH ×2 (08:54→15:45)
[2020-02-07 12:00] LABS: ABG Base Excess 7 mEq/L (-2 to 3); ABG HCO3 33 mEq/L (21-27); ABG Oxygen Saturation 93 % (95-98); ABG PCO2 54 mmHg (35-45); ABG PH 7.39 pH Units (7.32-7.45); ABG PO2 71 mmHg (85-104); ABG TCO2 35 mEq/L (20-26)
[2020-02-07 12:24] LABS: Estimated Average Glucose 154 mg/dl
[2020-02-07] MEDS ORDERED: Azithromycin 500 MG in 0.9 % Sodium Chloride 250 ML IVPB SCH (14:00)
[2020-02-07] MEDS ORDERED: *HR* OxyCODONE/APAP 7.5/325 TABLET PO PRN (16:45)
[2020-02-07] MEDS: *HR* Heparin 5,000 UNIT/ML VIAL SQ SCH (17:49)
[2020-02-07] MEDS: Budesonide/Formoterol 160/4.5 1 PUFF INH IH SCH (20:34)
[2020-02-07] MEDS ORDERED: Insulin LISPRO 300 UNITS/3 ML VIAL SQ SCH (21:00)
[2020-02-08 03:44] LABS: Basophils % 0.1 %; Hematocrit 27.9 % (37.5-50.1); Immature Granulocytes % 0.5 % (0-4); Lymphocytes # 0.4 K/mcL (0.6-4.6); Lymphocytes % 2.9 %; Mean Corpuscular HGB Conc 32.3 g/dL (31.6-35.5); Mean Corpuscular Hemoglobin 28.8 pg (28.0-33.3); Mean Corpuscular Volume 89.4 fL (83.0-100.0); Mean Platelet Volume 9.1 fL (9.4-12.4); Monocytes # 0.3 K/mcL (0.0-1.3); Monocytes % 2.5 %; Neutrophils # 11.2 K/mcL (1.6-8.9); Platelet Count 295 K/mcL (140-400); Red Blood Count 3.12 M/mcL (4.19-5.50); Red Cell Distribution Width 13.6 % (11.5-14.5)
[2020-02-08] MEDS: Ipratropium/Albuterol Neb 3 ML IH SCH ×3 (03:52→11:17)
[2020-02-08 03:58] LABS: Calcium 9.5 mg/dL (8.6-10.3)
[2020-02-08] MEDS: *HR* Heparin 5,000 UNIT/ML VIAL SQ SCH (05:10)
[2020-02-08] MEDS: Budesonide/Formoterol 160/4.5 1 PUFF INH IH SCH (08:18)
[2020-02-08] MEDS ORDERED: Venlafaxine XR (24 HR) 37.5 MG CAP.ER.24H PO SCH (09:00)
[2020-02-08] MEDS ORDERED: allopurinoL 100 MG TABLET PO SCH (09:00)
[2020-02-08] MEDS ORDERED: Isosorbide MONOnitrate (24 HR) 30 MG TAB.ER.24H PO SCH (09:00)
[2020-02-08] MEDS ORDERED: Lactulose Oral Soln 20 GM/30 ML UDC PO SCH (09:00)
[2020-02-08] MEDS ORDERED: Aspirin Enteric Coated 81 MG Tablet PO SCH (09:00)
[2020-02-08] MEDS ORDERED: Finasteride 5 MG TABLET PO SCH (09:00)
[2020-02-08] MEDS: carvediloL 25 MG TABLET PO SCH (09:32)
[2020-02-08] MEDS: cefTRIAXone 1,000 MG in 0.9 % Sodium Chloride Mini Bag 100 ML IVPB SCH (09:32)
[2020-02-08] MEDS: MethylPREDNISolone 40 MG/ML VIAL IVP SCH (09:32)
[2020-02-08] MEDS: Pantoprazole 40 MG VIAL IVP SCH (09:33)
[2020-02-08] MEDS: Furosemide 40 MG/4 ML VIAL IVP SCH (09:33)
[2020-02-08] MEDS: Insulin LISPRO 300 UNITS/3 ML VIAL SQ SCH ×3 (10:20→12:40)
[2020-02-08 12:00] VITALS: BP 163/83
== END 2020-02-08 13:14 | disposition home or self-care (01) | DRG 291 ==
LOC: INTOOBSV 18:20 → SUATTDRO 18:20 → 2NNU 18:20 → SUATTDRO 02-07 13:36
PROVIDERS: ADMIT Student in an Organized Health Care Education/Training Program; ATTEND Internal Medicine

== ENCOUNTER 2020-05-16 00:09 | Inpatient (IN) ==
[2020-05-16] MEDS ORDERED: Naloxone 0.4 MG/ML INJ IVP PRN (02:20)
[2020-05-16] MEDS ORDERED: Ondansetron 4 MG/2 ML VIAL IVP PRN (02:20)
[2020-05-16] MEDS ORDERED: 0.9 % Sodium Chloride 250 ML IVC ONE (02:32)
[2020-05-16] MEDS ORDERED: Ipratropium/Albuterol Neb 3 ML IH PRN (03:37)
[2020-05-16] MEDS ORDERED: Dextrose Gel 15 GM/37.5 ML TUBE PO PRN ×2 (03:44)
[2020-05-16] MEDS ORDERED: *HR* Dextrose 50 % in Water (Vial) 50 ML VIAL IVP PRN (03:44)
[2020-05-16] MEDS ORDERED: D5% in Water 1,000 ML IVC PRN (03:44)
[2020-05-16] MEDS: Ipratropium/Albuterol Neb 3 ML IH SCH ×6 (04:50→23:43)
[2020-05-16 05:50] LABS: Hemoglobin 7.7 g/dL (12.9-16.9); Mean Corpuscular HGB Conc 32.1 g/dL (31.6-35.5); Mean Corpuscular Hemoglobin 28.6 pg (28.0-33.3); Mean Corpuscular Volume 89.2 fL (83.0-100.0); Platelet Count 239 K/mcL (140-400); Red Blood Count 2.69 M/mcL (4.19-5.50); Red Cell Distribution Width 15.7 % (11.5-14.5); White Blood Count 12.7 K/mcL (4.3-11.1)
[2020-05-16 06:12] LABS: Albumin 3.4 g/dL (3.5-5.7); Albumin/Globulin Ratio 1.3 (1.1-2.2); Bilirubin,Total 0.3 mg/dL (0.3-1.0); Globulin 2.6 g/dL (2.4-3.5); Magnesium 1.9 mg/dL (1.6-2.6); Phosphorous 4.9 mg/dL (2.7-4.5); Potassium 3.9 mEq/L (3.5-5.1)
[2020-05-16 06:23] LABS: Thyroid Stimulating Hormone 4.532 mcIU/mL (0.340-5.600)
[2020-05-16 06:34] LABS: Folate 14.6 ng/mL (3.0-16.0)
[2020-05-16 06:38] LABS: Vitamin B12 > 1500 pg/mL (250-1100)
[2020-05-16] MEDS ORDERED: Nitroglycerin 0.4 MG TAB.SUBL SL PRN (07:48)
[2020-05-16] MEDS: Budesonide/Formoterol 160/4.5 1 PUFF INH IH SCH ×2 (08:03→20:45)
[2020-05-16] MEDS: Piperacillin/Tazobactam 3.375 GM in 0.9 % Sodium Chloride Mini Bag 100 ML IVPB SCH ×2 (08:22→15:45)
[2020-05-16] MEDS: predniSONE 20 MG TABLET PO SCH (08:22)
[2020-05-16] MEDS: carvediloL 25 MG TABLET PO SCH ×2 (08:23→15:45)
[2020-05-16] MEDS: Finasteride 5 MG TABLET PO SCH (08:23)
[2020-05-16] MEDS: Nystatin POWDER 30 GM BOTTLE TP SCH ×2 (08:23→14:02)
[2020-05-16] MEDS: Aspirin Enteric Coated 81 MG Tablet PO SCH (08:23)
[2020-05-16] MEDS: allopurinoL 100 MG TABLET PO SCH (08:23)
[2020-05-16] MEDS: Lactulose Oral Soln 20 GM/30 ML UDC PO SCH (08:23)
[2020-05-16] MEDS ORDERED: Furosemide 40 MG/4 ML VIAL IVP ONE (10:32)
[2020-05-16] MEDS ORDERED: Acetaminophen 325 MG TABLET PO PRN (14:29)
[2020-05-16 17:32] LABS: Hematocrit 26.1 % (37.5-50.1); Hemoglobin 8.5 g/dL (12.9-16.9)
[2020-05-17] MEDS: Piperacillin/Tazobactam 3.375 GM in 0.9 % Sodium Chloride Mini Bag 100 ML IVPB SCH ×2 (00:15→08:26)
[2020-05-17] MEDS: Ipratropium/Albuterol Neb 3 ML IH SCH ×6 (03:58→23:37)
[2020-05-17 05:29] LABS: Basophils % 0.1 %; Eosinophils % 0.3 %; Hemoglobin 7.4 g/dL (12.9-16.9); Immature Granulocytes % 0.4 % (0-4); Lymphocytes # 0.5 K/mcL (0.6-4.6); Lymphocytes % 5.3 %; Mean Corpuscular HGB Conc 33.6 g/dL (31.6-35.5); Mean Corpuscular Hemoglobin 29.6 pg (28.0-33.3); Mean Platelet Volume 9.5 fL (9.4-12.4); Monocytes # 0.6 K/mcL (0.0-1.3); Monocytes % 6.2 %; Neutrophils # 8.6 K/mcL (1.6-8.9); Platelet Count 272 K/mcL (140-400); Red Cell Distribution Width 15.7 % (11.5-14.5); Segmented Neutrophils % 87.7 %; White Blood Count 9.8 K/mcL (4.3-11.1)
[2020-05-17 05:42] LABS: Calcium 8.6 mg/dL (8.6-10.3); Potassium 3.9 mEq/L (3.5-5.1)
[2020-05-17 05:43] LABS: Magnesium 1.9 mg/dL (1.6-2.6); Phosphorous 3.6 mg/dL (2.7-4.5)
[2020-05-17 05:53] LABS: Uric Acid 10.5 mg/dL (2.3-7.6)
[2020-05-17] MEDS: Nystatin POWDER 30 GM BOTTLE TP SCH ×4 (05:57→14:09)
[2020-05-17] MEDS: Budesonide/Formoterol 160/4.5 1 PUFF INH IH SCH ×2 (07:37→19:57)
[2020-05-17] MEDS: BuPROPion XL (24 HR) 150 MG TABLET PO SCH (08:25)
[2020-05-17] MEDS: carvediloL 25 MG TABLET PO SCH ×2 (08:25→17:51)
[2020-05-17] MEDS: allopurinoL 100 MG TABLET PO SCH (08:26)
[2020-05-17] MEDS: Finasteride 5 MG TABLET PO SCH (08:26)
[2020-05-17] MEDS: Furosemide 20 MG/2 ML VIAL IVP SCH ×2 (08:27→20:11)
[2020-05-17] MEDS: Aspirin Enteric Coated 81 MG Tablet PO SCH (08:27)
[2020-05-17] MEDS: predniSONE 20 MG TABLET PO SCH (08:30)
[2020-05-17] MEDS: Insulin LISPRO 300 UNITS/3 ML VIAL SUBQ SCH ×4 (08:31→20:12)
[2020-05-17] MEDS: Lactulose Oral Soln 20 GM/30 ML UDC PO SCH ×2 (08:31→14:09)
[2020-05-17] MEDS ORDERED: *HR* OxyCODONE/APAP 7.5/325 TABLET PO PRN (09:27)
[2020-05-17] MEDS: *HR* OxyCODONE/APAP 7.5/325 TABLET PO PRN ×2 (09:56→21:57)
[2020-05-17] MEDS: cefTRIAXone 1,000 MG in Water for inj. (sterile) 10 ML IVP SCH (13:32)
[2020-05-17] MEDS: *HR* Heparin 5,000 UNIT/ML VIAL SQ SCH (17:51)
[2020-05-18 03:32] LABS: Hemoglobin 7.6 g/dL (12.9-16.9)
[2020-05-18 03:41] LABS: Calcium 9.2 mg/dL (8.6-10.3); Magnesium 2.5 mg/dL (1.6-2.6); Phosphorous 3.6 mg/dL (2.7-4.5); Potassium 4.2 mEq/L (3.5-5.1)
[2020-05-18] MEDS: Ipratropium/Albuterol Neb 3 ML IH SCH ×3 (03:58→11:12)
[2020-05-18] MEDS: Nystatin POWDER 30 GM BOTTLE TP SCH ×3 (05:09→10:46)
[2020-05-18] MEDS: *HR* Heparin 5,000 UNIT/ML VIAL SQ SCH (05:30)
[2020-05-18] MEDS: Budesonide/Formoterol 160/4.5 1 PUFF INH IH SCH (07:37)
[2020-05-18] MEDS: allopurinoL 100 MG TABLET PO SCH (08:54)
[2020-05-18] MEDS: BuPROPion XL (24 HR) 150 MG TABLET PO SCH (08:54)
[2020-05-18] MEDS: Aspirin Enteric Coated 81 MG Tablet PO SCH (08:54)
[2020-05-18] MEDS: predniSONE 20 MG TABLET PO SCH (08:54)
[2020-05-18] MEDS: carvediloL 25 MG TABLET PO SCH (08:54)
[2020-05-18] MEDS: Lactulose Oral Soln 20 GM/30 ML UDC PO SCH (08:54)
[2020-05-18] MEDS: Furosemide 20 MG/2 ML VIAL IVP SCH (08:55)
[2020-05-18] MEDS: cefTRIAXone 1,000 MG in Water for inj. (sterile) 10 ML IVP SCH (08:55)
[2020-05-18] MEDS: Finasteride 5 MG TABLET PO SCH (08:55)
[2020-05-18] MEDS: Insulin LISPRO 300 UNITS/3 ML VIAL SUBQ SCH (10:43)
[2020-05-18] MEDS ORDERED: Fosfomycin Tromethamine 3 GM Packet PO ONE (11:15)
[2020-05-18 11:39] VITALS: BP 115/74
== END 2020-05-18 13:15 | disposition home or self-care (01) | DRG 871 ==
LOC: 2NNU → SUATTDRO 01:35 → CDU 05-18 11:26
PROVIDERS: ADMIT Family Medicine; ATTEND Internal Medicine

== ENCOUNTER 2020-06-09 14:44 | Inpatient (IN) ==
[2020-06-09] MEDS ORDERED: *HR* Propofol 200 MG/20 ML VIAL IVP ONE (15:14)
[2020-06-09] MEDS ORDERED: Ondansetron 4 MG/2 ML VIAL IVP PRN (17:24)
[2020-06-09] MEDS ORDERED: Naloxone 0.4 MG/ML INJ IVP PRN (17:24)
[2020-06-09] MEDS ORDERED: 0.9 % Sodium Chloride 1,000 ML IVC SCH ×2 (17:30→23:45)
[2020-06-09] MEDS ORDERED: D5% in Water 1,000 ML IVC PRN (17:30)
[2020-06-09] MEDS ORDERED: *HR* Dextrose 50 % in Water (Vial) 50 ML VIAL IVP PRN (17:30)
[2020-06-09] MEDS ORDERED: Dextrose Gel 15 GM/37.5 ML TUBE PO PRN ×2 (17:30)
[2020-06-09] MEDS ORDERED: allopurinoL 100 MG TABLET PO PRN (17:31)
[2020-06-09] MEDS ORDERED: *HR* Midazolam HCl 2 MG/2 ML VIAL ONE (18:14)
[2020-06-09] MEDS ORDERED: Albuterol 2.5 MG/3 ML NEBULIZER IH PRN (18:43)
[2020-06-09 19:18] LABS: Basophils % 0.1 %; Eosinophils # 0.1 K/mcL (0.0-0.6); Eosinophils % 0.3 %; Hematocrit 26.6 % (37.5-50.1); Hemoglobin 8.3 g/dL (12.9-16.9); Immature Granulocytes % 0.5 % (0-4); Lymphocytes # 0.7 K/mcL (0.6-4.6); Lymphocytes % 4.4 %; Mean Corpuscular HGB Conc 31.2 g/dL (31.6-35.5); Mean Corpuscular Hemoglobin 29.3 pg (28.0-33.3); Mean Platelet Volume 9.4 fL (9.4-12.4); Monocytes # 0.9 K/mcL (0.0-1.3); Neutrophils # 13.6 K/mcL (1.6-8.9); Platelet Count 200 K/mcL (140-400); Red Blood Count 2.83 M/mcL (4.19-5.50); Red Cell Distribution Width 15.9 % (11.5-14.5); Segmented Neutrophils % 88.7 %; White Blood Count 15.3 K/mcL (4.3-11.1)
[2020-06-09 19:21] LABS: VBG Ionized Calcium 1.03 mmol/L (1.15-1.35)
[2020-06-09 19:36] LABS: Albumin 3.7 g/dL (3.5-5.7); Albumin/Globulin Ratio 1.4 (1.1-2.2); Bilirubin,Total 0.5 mg/dL (0.3-1.0); Calcium 8.8 mg/dL (8.6-10.3); Globulin 2.6 g/dL (2.4-3.5); Magnesium 2.3 mg/dL (1.6-2.6); Phosphorous 4.8 mg/dL (2.7-4.5); Potassium 4.6 mEq/L (3.5-5.1); Total Protein 6.3 g/dL (6.4-8.9)
[2020-06-09] MEDS: Insulin LISPRO 300 UNITS/3 ML VIAL SUBQ SCH (19:45)
[2020-06-09 19:49] LABS: Thyroid Stimulating Hormone 4.956 mcIU/mL (0.340-5.600)
[2020-06-09 20:06] LABS: Estimated Average Glucose 169 mg/dl; Hemoglobin A1C 7.5 %
[2020-06-09] MEDS: Ipratropium/Albuterol Neb 3 ML IH SCH ×2 (20:10→23:45)
[2020-06-09] MEDS: Hydrocortisone Sodium Succ 100 MG/2 ML VIAL IVP SCH ×2 (20:18→22:59)
[2020-06-09] MEDS ORDERED: Baclofen 10 MG TABLET PO SCH (21:00)
[2020-06-09] MEDS ORDERED: 0.9 % Sodium Chloride 1,000 ML IVC ONE (22:12)
[2020-06-09] MEDS: Piperacillin/Tazobactam 3.375 GM in 0.9 % Sodium Chloride Mini Bag 100 ML IVPB SCH (22:58)
[2020-06-10] MEDS ORDERED: Hydrocortisone Sodium Succ 100 MG/2 ML VIAL IVP SCH
[2020-06-10 02:01] LABS: VBG Ionized Calcium 1.05 mmol/L (1.15-1.35)
[2020-06-10 02:02] LABS: Basophils % 0.1 %; Eosinophils % 0.1 %; Hematocrit 23.9 % (37.5-50.1); Hemoglobin 7.7 g/dL (12.9-16.9); Immature Granulocytes % 0.5 % (0-4); Lymphocytes # 0.3 K/mcL (0.6-4.6); Lymphocytes % 1.6 %; Mean Corpuscular HGB Conc 32.2 g/dL (31.6-35.5); Mean Corpuscular Hemoglobin 29.6 pg (28.0-33.3); Mean Corpuscular Volume 91.9 fL (83.0-100.0); Mean Platelet Volume 9.1 fL (9.4-12.4); Monocytes # 0.7 K/mcL (0.0-1.3); Monocytes % 3.7 %; Neutrophils # 16.4 K/mcL (1.6-8.9); Platelet Count 203 K/mcL (140-400); Red Cell Distribution Width 15.8 % (11.5-14.5); White Blood Count 17.4 K/mcL (4.3-11.1)
[2020-06-10 02:17] LABS: Calcium 8.2 mg/dL (8.6-10.3); Magnesium 2.3 mg/dL (1.6-2.6); Phosphorous 4.9 mg/dL (2.7-4.5); Potassium 4.6 mEq/L (3.5-5.1)
[2020-06-10] MEDS ORDERED: Calcium Gluconate 1gm/50mL 1 GM/50 ML BAG IVPB PRN (02:39)
[2020-06-10] MEDS ORDERED: Morphine Sulfate 2 MG/ML SYRINGE IVP PRN (02:43)
[2020-06-10] MEDS: Ipratropium/Albuterol Neb 3 ML IH SCH ×5 (02:47→20:07)
[2020-06-10] MEDS: Norepinephrine 4 MG/254 ML IV.SOLN IVC SCH ×2 (04:43→23:35)
[2020-06-10] MEDS: Hydrocortisone Sodium Succ 100 MG/2 ML VIAL IVP SCH ×4 (06:06→23:16)
[2020-06-10] MEDS: *HR* OxyCODONE/APAP 7.5/325 TABLET PO PRN ×3 (06:08→20:34)
[2020-06-10] MEDS ORDERED: carvediloL 25 MG TABLET PO SCH ×2 (08:00)
[2020-06-10] MEDS: Aspirin Enteric Coated 81 MG Tablet PO SCH (08:58)
[2020-06-10] MEDS: Piperacillin/Tazobactam 3.375 GM in 0.9 % Sodium Chloride Mini Bag 100 ML IVPB SCH ×3 (08:59→23:17)
[2020-06-10] MEDS ORDERED: Finasteride 5 MG TABLET PO SCH (09:00)
[2020-06-10] MEDS: Insulin LISPRO 300 UNITS/3 ML VIAL SUBQ SCH ×4 (09:00→20:35)
[2020-06-10] MEDS ORDERED: BuPROPion XL (24 HR) 150 MG TABLET PO SCH (09:00)
[2020-06-10] MEDS: Insulin DETEMIR 100 UNIT/ML X5UNITS SUBQ SCH ×2 (11:54→20:34)
[2020-06-10] MEDS: *HR* Heparin 5,000 UNIT/ML VIAL SQ SCH ×2 (14:10→20:34)
[2020-06-10] MEDS: Budesonide/Formoterol 160/4.5 1 PUFF INH IH SCH (20:07)
[2020-06-10] MEDS: Docusate Oral Soln 100 MG/10 ML UDC PO SCH (20:34)
[2020-06-11] MEDS: Ipratropium/Albuterol Neb 3 ML IH SCH ×7 (00:05→23:20)
[2020-06-11 03:46] LABS: Eosinophils % 0.1 %; Hematocrit 23.1 % (37.5-50.1); Hemoglobin 7.5 g/dL (12.9-16.9); Immature Granulocytes % 0.4 % (0-4); Lymphocytes # 0.4 K/mcL (0.6-4.6); Lymphocytes % 2.7 %; Mean Corpuscular HGB Conc 32.5 g/dL (31.6-35.5); Mean Corpuscular Hemoglobin 28.7 pg (28.0-33.3); Mean Corpuscular Volume 88.5 fL (83.0-100.0); Mean Platelet Volume 8.8 fL (9.4-12.4); Monocytes # 0.5 K/mcL (0.0-1.3); Monocytes % 3.9 %; Neutrophils # 12.4 K/mcL (1.6-8.9); Platelet Count 207 K/mcL (140-400); Red Blood Count 2.61 M/mcL (4.19-5.50); Red Cell Distribution Width 15.4 % (11.5-14.5); Segmented Neutrophils % 92.9 %; White Blood Count 13.4 K/mcL (4.3-11.1)
[2020-06-11 03:59] LABS: Amorphous Sediment,Urine Few per hpf (None-Few); Bacteria,Urine Few per hpf (None-Few); Bilirubin,Urine Negative (Negative); Blood,Urine Large (Negative); Clarity,Urine Clear (Clear); Color,Urine Light-Brown (Yellow); Glucose,Urine (UA) >=1000 mg/dL (Normal); Ketones,Urine Negative (Negative); Leukocyte Esterase,Urine Large (Negative); Mucus,Urine Few per lpf (None-Few); Nitrite,Urine Negative (Negative); PH,Urine 5.5 pH Units (5.0-8.0); Protein,Urine 70 mg/dL (Neg-Trace); RBC,Urine TNTC per hpf (0-3); Specific Gravity,Urine 1.009 (1.010-1.025); Urobilinogen,Urine Normal (Normal); WBC,Urine TNTC per hpf (0-3)
[2020-06-11 04:07] LABS: Calcium 8.9 mg/dL (8.6-10.3); Magnesium 2.6 mg/dL (1.6-2.6); Potassium 3.7 mEq/L (3.5-5.1)
[2020-06-11] MEDS: Hydrocortisone Sodium Succ 100 MG/2 ML VIAL IVP SCH ×3 (05:31→17:20)
[2020-06-11] MEDS: *HR* Heparin 5,000 UNIT/ML VIAL SQ SCH ×3 (05:31→21:57)
[2020-06-11] MEDS: Budesonide/Formoterol 160/4.5 1 PUFF INH IH SCH ×2 (07:13→19:51)
[2020-06-11] MEDS: Insulin LISPRO 300 UNITS/3 ML VIAL SUBQ SCH ×4 (07:59→21:51)
[2020-06-11] MEDS: Piperacillin/Tazobactam 3.375 GM in 0.9 % Sodium Chloride Mini Bag 100 ML IVPB SCH (08:00)
[2020-06-11] MEDS: Docusate Oral Soln 100 MG/10 ML UDC PO SCH (08:00)
[2020-06-11] MEDS: carvediloL 6.25 MG TABLET PO SCH ×2 (08:00→17:20)
[2020-06-11] MEDS: Aspirin Enteric Coated 81 MG Tablet PO SCH (08:01)
[2020-06-11] MEDS: Insulin DETEMIR 100 UNIT/ML X5UNITS SUBQ SCH ×2 (08:05→21:57)
[2020-06-11] MEDS: *HR* OxyCODONE/APAP 7.5/325 TABLET PO PRN ×3 (09:45→21:56)
[2020-06-11] MEDS ORDERED: Lactulose Oral Soln 20 GM/30 ML UDC PO ONE (11:09)
[2020-06-11] MEDS ORDERED: Ertapenem 1,000 MG in 0.9 % Sodium Chloride Mini Bag 100 ML IVPB SCH (14:00)
[2020-06-11] MEDS ORDERED: Naloxone 0.4 MG/ML INJ IVP PRN (19:09)
[2020-06-11] MEDS ORDERED: Norepinephrine 4 MG/254 ML IV.SOLN IVC SCH (19:09)
[2020-06-11] MEDS ORDERED: Ondansetron 4 MG/2 ML VIAL IVP PRN (19:09)
[2020-06-11] MEDS ORDERED: Calcium Gluconate 1gm/50mL 1 GM/50 ML BAG IVPB PRN (19:09)
[2020-06-11] MEDS ORDERED: Dextrose Gel 15 GM/37.5 ML TUBE PO PRN ×2 (19:09)
[2020-06-11] MEDS ORDERED: Albuterol 2.5 MG/3 ML NEBULIZER IH PRN (19:09)
[2020-06-11] MEDS ORDERED: D5% in Water 1,000 ML IVC PRN (19:09)
[2020-06-11] MEDS ORDERED: *HR* Dextrose 50 % in Water (Vial) 50 ML VIAL IVP PRN (19:09)
[2020-06-11] MEDS: Lactulose Oral Soln 20 GM/30 ML UDC PO SCH (21:56)
[2020-06-11] MEDS: Magnesium Oxide 400 MG TABLET PO SCH (21:56)
[2020-06-12] MEDS: Hydrocortisone Sodium Succ 100 MG/2 ML VIAL IVP SCH ×3 (00:18→18:28)
[2020-06-12] MEDS: Ipratropium/Albuterol Neb 3 ML IH SCH ×6 (03:29→23:52)
[2020-06-12] MEDS: *HR* OxyCODONE/APAP 7.5/325 TABLET PO PRN ×3 (03:59→20:43)
[2020-06-12 05:00] LABS: Calcium 9.2 mg/dL (8.6-10.3); Potassium 3.5 mEq/L (3.5-5.1)
[2020-06-12] MEDS: *HR* Heparin 5,000 UNIT/ML VIAL SQ SCH ×3 (06:34→21:48)
[2020-06-12] MEDS: Budesonide/Formoterol 160/4.5 1 PUFF INH IH SCH ×2 (07:32→19:56)
[2020-06-12] MEDS: carvediloL 6.25 MG TABLET PO SCH ×2 (08:22→18:28)
[2020-06-12] MEDS: Lactulose Oral Soln 20 GM/30 ML UDC PO SCH (08:22)
[2020-06-12] MEDS: Aspirin Enteric Coated 81 MG Tablet PO SCH (08:22)
[2020-06-12] MEDS: Insulin DETEMIR 100 UNIT/ML X5UNITS SUBQ SCH ×2 (08:23→20:50)
[2020-06-12] MEDS: Insulin LISPRO 300 UNITS/3 ML VIAL SUBQ SCH ×4 (08:24→20:48)
[2020-06-12] MEDS ORDERED: Docusate Oral Soln 100 MG/10 ML UDC PO SCH (09:00)
[2020-06-12] MEDS ORDERED: Sennosides 8.6 MG TABLET PO ONE (10:33)
[2020-06-12] MEDS ORDERED: Furosemide 20 MG/2 ML VIAL IVP ONE (11:31)
[2020-06-12 12:36] LABS: Basophils % 0.1 %; Eosinophils % 0.1 %; Hematocrit 25.6 % (37.5-50.1); Hemoglobin 8.2 g/dL (12.9-16.9); Immature Granulocytes % 1.2 % (0-4); Lymphocytes # 0.5 K/mcL (0.6-4.6); Mean Corpuscular Hemoglobin 28.4 pg (28.0-33.3); Mean Corpuscular Volume 88.6 fL (83.0-100.0); Mean Platelet Volume 8.8 fL (9.4-12.4); Monocytes # 0.5 K/mcL (0.0-1.3); Neutrophils # 10.3 K/mcL (1.6-8.9); Platelet Count 237 K/mcL (140-400); Red Blood Count 2.89 M/mcL (4.19-5.50); Red Cell Distribution Width 14.9 % (11.5-14.5); Segmented Neutrophils % 90.6 %; White Blood Count 11.4 K/mcL (4.3-11.1)
[2020-06-12] MEDS: Ertapenem 1,000 MG in 0.9 % Sodium Chloride Mini Bag 100 ML IVPB SCH (13:51)
[2020-06-12] MEDS ORDERED: Milk and Molasses Enema 200 ML RC ONE (14:37)
[2020-06-12] MEDS: Magnesium Oxide 400 MG TABLET PO SCH (20:42)
[2020-06-13] MEDS: Ipratropium/Albuterol Neb 3 ML IH SCH ×4 (04:40→15:12)
[2020-06-13] MEDS: *HR* Heparin 5,000 UNIT/ML VIAL SQ SCH ×2 (05:11→13:38)
[2020-06-13] MEDS: Hydrocortisone Sodium Succ 100 MG/2 ML VIAL IVP SCH (05:12)
[2020-06-13] MEDS: *HR* OxyCODONE/APAP 7.5/325 TABLET PO PRN ×2 (05:21→12:19)
[2020-06-13] MEDS: Budesonide/Formoterol 160/4.5 1 PUFF INH IH SCH (07:40)
[2020-06-13] MEDS: Aspirin Enteric Coated 81 MG Tablet PO SCH (07:52)
[2020-06-13] MEDS: Insulin LISPRO 300 UNITS/3 ML VIAL SUBQ SCH ×2 (07:52→11:42)
[2020-06-13] MEDS: carvediloL 6.25 MG TABLET PO SCH (07:52)
[2020-06-13] MEDS: Lactulose Oral Soln 20 GM/30 ML UDC PO SCH (07:53)
[2020-06-13] MEDS: Insulin DETEMIR 100 UNIT/ML X5UNITS SUBQ SCH (07:54)
[2020-06-13 11:33] VITALS: BP 151/80
[2020-06-13] MEDS ORDERED: carvediloL 6.25 MG TABLET PO ONE (13:09)
[2020-06-13] MEDS: Ertapenem 1,000 MG in 0.9 % Sodium Chloride Mini Bag 100 ML IVPB SCH (13:37)
[2020-06-13] MEDS ORDERED: carvediloL 6.25 MG TABLET PO SCH (17:00)
== END 2020-06-13 16:49 | disposition home health service (06) | DRG 853 ==
LOC: 2ANU → 1ANU → ICNU 18:06 → 3ANU 06-11 12:34
PROVIDERS: ADMIT General Practice; ATTEND General Practice
PROC: UROTURP (2020-06-09 16:00)

== ENCOUNTER 2020-06-19 20:45 | Inpatient (IN) ==
[2020-06-20] MEDS ORDERED: Naloxone 0.4 MG/ML INJ IVP PRN (01:20)
[2020-06-20] MEDS ORDERED: Acetaminophen 325 MG TABLET PO PRN (01:20)
[2020-06-20] MEDS ORDERED: Ondansetron 4 MG/2 ML VIAL IVP PRN (01:20)
[2020-06-20] MEDS ORDERED: D5% in Water 1,000 ML IVC PRN (01:30)
[2020-06-20] MEDS ORDERED: Dextrose Gel 15 GM/37.5 ML TUBE PO PRN ×2 (01:30)
[2020-06-20] MEDS ORDERED: *HR* Dextrose 50 % in Water (Vial) 50 ML VIAL IVP PRN (01:30)
[2020-06-20 02:25] LABS: Basophils % 0.1 %; Hematocrit 15.9 % (37.5-50.1)
[2020-06-20 02:26] LABS: Eosinophils # 0.2 K/mcL (0.0-0.6); Eosinophils % 1.8 %; Immature Granulocytes % 1.1 % (0-4); Lymphocytes % 11.4 %; Mean Corpuscular HGB Conc 32.7 g/dL (31.6-35.5); Mean Corpuscular Hemoglobin 29.9 pg (28.0-33.3); Mean Corpuscular Volume 91.4 fL (83.0-100.0); Mean Platelet Volume 9.1 fL (9.4-12.4); Monocytes # 0.7 K/mcL (0.0-1.3); Monocytes % 8.7 %; Neutrophils # 6.5 K/mcL (1.6-8.9); Platelet Count 235 K/mcL (140-400); Red Blood Count 1.74 M/mcL (4.19-5.50); Red Cell Distribution Width 15.4 % (11.5-14.5); Segmented Neutrophils % 76.9 %; White Blood Count 8.4 K/mcL (4.3-11.1)
[2020-06-20 02:29] LABS: Hemoglobin 5.2 g/dL (12.9-16.9)
[2020-06-20 02:44] LABS: Calcium 8.4 mg/dL (8.6-10.3); Magnesium 2.5 mg/dL (1.6-2.6); Phosphorous 5.3 mg/dL (2.7-4.5); Potassium 4.8 mEq/L (3.5-5.1)
[2020-06-20 02:45] LABS: Uric Acid 11.7 mg/dL (2.3-7.6)
[2020-06-20 02:55] LABS: Anisocytosis 1+ (Not Present); Platelet Estimate Normal (Normal)
[2020-06-20] MEDS ORDERED: Furosemide 40 MG/4 ML VIAL IVP ONE (04:04)
[2020-06-20 05:25] LABS: Hematocrit 21.7 % (37.5-50.1)
[2020-06-20 05:26] LABS: Hemoglobin 7.1 g/dL (12.9-16.9)
[2020-06-20] MEDS: *HR* Heparin 5,000 UNIT/ML VIAL SQ SCH ×3 (05:32→21:07)
[2020-06-20] MEDS: *HR* HYDROcodone/Acet 5/325 mg TABLET PO PRN ×3 (05:37→21:51)
[2020-06-20] MEDS ORDERED: 0.9 % Sodium Chloride 250 ML ONE ×2 (10:17→18:44)
[2020-06-20] MEDS: Insulin LISPRO 300 UNITS/3 ML VIAL SUBQ SCH ×4 (10:35→21:49)
[2020-06-20] MEDS: Ipratropium/Albuterol Neb 3 ML IH PRN (13:32)
[2020-06-20] MEDS: Ertapenem 1,000 MG in 0.9 % Sodium Chloride Mini Bag 100 ML IVPB SCH (13:56)
[2020-06-20 14:03] LABS: Protein/Creatinine Ratio,Urine 0.48 mg/mg (0.00-0.20)
[2020-06-20 15:23] LABS: Hematocrit 24.1 % (37.5-50.1); Hemoglobin 7.7 g/dL (12.9-16.9)
[2020-06-20] MEDS ORDERED: Albumin 25% 25gram/100mL 25 GM/100 ML IV.SOLN IVPB ONE (16:00)
[2020-06-20 16:48] LABS: ABG Base Excess 0 mEq/L (-2 to 3); ABG HCO3 26 mEq/L (21-27); ABG Oxygen Saturation 97 % (95-98); ABG PCO2 50 mmHg (35-45); ABG PH 7.33 pH Units (7.32-7.45); ABG PO2 104 mmHg (85-104); ABG TCO2 28 mEq/L (20-26)
[2020-06-20] MEDS ORDERED: Furosemide 40 MG/4 ML VIAL IVP SCH (17:00)
[2020-06-21] MEDS: Ipratropium/Albuterol Neb 3 ML IH PRN ×4 (00:14→21:43)
[2020-06-21] MEDS: *HR* Heparin 5,000 UNIT/ML VIAL SQ SCH ×3 (05:44→22:48)
[2020-06-21] MEDS: Insulin LISPRO 300 UNITS/3 ML VIAL SUBQ SCH ×4 (07:22→20:20)
[2020-06-21] MEDS ORDERED: Fluticasone Propionate Nasal 50 MCG/SPRAY BOTTLE NS PRN (07:31)
[2020-06-21] MEDS ORDERED: Budesonide/Formoterol 160/4.5 1 PUFF INH IH SCH (09:00)
[2020-06-21] MEDS: Aspirin Enteric Coated 81 MG Tablet PO SCH (09:17)
[2020-06-21] MEDS: Cyanocobalamin (B-12) 1,000 MCG TABLET PO SCH (09:17)
[2020-06-21] MEDS: Ertapenem 1,000 MG in 0.9 % Sodium Chloride Mini Bag 100 ML IVPB SCH (09:17)
[2020-06-21] MEDS: BuPROPion XL (24 HR) 150 MG TABLET PO SCH (09:17)
[2020-06-21] MEDS: Lactulose Oral Soln 20 GM/30 ML UDC PO SCH (09:18)
[2020-06-21] MEDS: Cholecalciferol (D-3) 1,000 UNIT (25MCG) TABLET PO SCH (09:18)
[2020-06-21] MEDS: Finasteride 5 MG TABLET PO SCH (09:18)
[2020-06-21] MEDS: *HR* HYDROcodone/Acet 5/325 mg TABLET PO PRN ×2 (10:11→22:50)
[2020-06-21 10:54] LABS: Basophils % 0.1 %; Eosinophils # 0.2 K/mcL (0.0-0.6); Eosinophils % 1.8 %; Hematocrit 26.8 % (37.5-50.1); Hemoglobin 8.8 g/dL (12.9-16.9); Immature Granulocytes % 0.7 % (0-4); Lymphocytes # 0.8 K/mcL (0.6-4.6); Lymphocytes % 8.8 %; Mean Corpuscular HGB Conc 32.8 g/dL (31.6-35.5); Mean Corpuscular Hemoglobin 29.5 pg (28.0-33.3); Mean Corpuscular Volume 89.9 fL (83.0-100.0); Mean Platelet Volume 8.8 fL (9.4-12.4); Monocytes # 0.8 K/mcL (0.0-1.3); Monocytes % 9.5 %; Neutrophils # 6.8 K/mcL (1.6-8.9); Platelet Count 228 K/mcL (140-400); Red Blood Count 2.98 M/mcL (4.19-5.50); Red Cell Distribution Width 14.7 % (11.5-14.5); Segmented Neutrophils % 79.1 %; White Blood Count 8.6 K/mcL (4.3-11.1)
[2020-06-21 11:12] LABS: Calcium 9.1 mg/dL (8.6-10.3); Potassium 4.4 mEq/L (3.5-5.1)
[2020-06-21] MEDS: Budesonide/Formoterol 160/4.5 1 PUFF INH IH SCH ×2 (11:25→21:44)
[2020-06-21] MEDS ORDERED: Furosemide 40 MG TABLET PO ONE (12:10)
[2020-06-21] MEDS: Baclofen 10 MG TABLET PO SCH (22:47)
[2020-06-21] MEDS: Magnesium Oxide 400 MG TABLET PO SCH (22:50)
[2020-06-21] MEDS ORDERED: *HR* OxyCODONE/APAP 5/325 TABLET PO ONE (23:30)
[2020-06-22 02:48] LABS: Basophils % 0.3 %; Eosinophils # 0.1 K/mcL (0.0-0.6); Eosinophils % 1.6 %; Hematocrit 25.1 % (37.5-50.1); Hemoglobin 8.3 g/dL (12.9-16.9); Immature Granulocytes % 0.6 % (0-4); Lymphocytes # 0.6 K/mcL (0.6-4.6); Mean Corpuscular HGB Conc 33.1 g/dL (31.6-35.5); Mean Corpuscular Hemoglobin 29.6 pg (28.0-33.3); Mean Corpuscular Volume 89.6 fL (83.0-100.0); Monocytes # 0.9 K/mcL (0.0-1.3); Monocytes % 10.9 %; Neutrophils # 6.2 K/mcL (1.6-8.9); Platelet Count 232 K/mcL (140-400); Red Cell Distribution Width 14.7 % (11.5-14.5); Segmented Neutrophils % 78.6 %; White Blood Count 7.9 K/mcL (4.3-11.1)
[2020-06-22 03:15] LABS: Calcium 9.1 mg/dL (8.6-10.3); Potassium 4.3 mEq/L (3.5-5.1)
[2020-06-22] MEDS: Ipratropium/Albuterol Neb 3 ML IH PRN ×3 (04:52→18:26)
[2020-06-22] MEDS: *HR* Heparin 5,000 UNIT/ML VIAL SQ SCH ×3 (05:42→21:01)
[2020-06-22] MEDS: Cholecalciferol (D-3) 1,000 UNIT (25MCG) TABLET PO SCH (08:11)
[2020-06-22] MEDS: Cyanocobalamin (B-12) 1,000 MCG TABLET PO SCH (08:11)
[2020-06-22] MEDS: *HR* OxyCODONE/APAP 10/325 TABLET PO PRN ×2 (08:11→18:25)
[2020-06-22] MEDS: Finasteride 5 MG TABLET PO SCH (08:11)
[2020-06-22] MEDS: BuPROPion XL (24 HR) 150 MG TABLET PO SCH (08:11)
[2020-06-22] MEDS: Aspirin Enteric Coated 81 MG Tablet PO SCH (08:11)
[2020-06-22] MEDS: Insulin LISPRO 300 UNITS/3 ML VIAL SUBQ SCH ×4 (08:12→20:37)
[2020-06-22] MEDS: Lactulose Oral Soln 20 GM/30 ML UDC PO SCH (08:16)
[2020-06-22] MEDS: Budesonide/Formoterol 160/4.5 1 PUFF INH IH SCH ×2 (11:41→22:13)
[2020-06-22] MEDS: Baclofen 10 MG TABLET PO SCH (21:01)
[2020-06-22] MEDS: Magnesium Oxide 400 MG TABLET PO SCH (21:01)
[2020-06-23 01:10] LABS: Basophils % 0.2 %; Eosinophils # 0.2 K/mcL (0.0-0.6); Eosinophils % 1.7 %; Hemoglobin 8.4 g/dL (12.9-16.9); Immature Granulocytes % 0.6 % (0-4); Lymphocytes # 0.7 K/mcL (0.6-4.6); Lymphocytes % 7.9 %; Mean Corpuscular HGB Conc 33.6 g/dL (31.6-35.5); Mean Corpuscular Hemoglobin 30.2 pg (28.0-33.3); Mean Corpuscular Volume 89.9 fL (83.0-100.0); Mean Platelet Volume 8.9 fL (9.4-12.4); Monocytes # 0.8 K/mcL (0.0-1.3); Monocytes % 9.6 %; Neutrophils # 6.9 K/mcL (1.6-8.9); Platelet Count 240 K/mcL (140-400); Red Blood Count 2.78 M/mcL (4.19-5.50); Red Cell Distribution Width 14.6 % (11.5-14.5); White Blood Count 8.7 K/mcL (4.3-11.1)
[2020-06-23 01:28] LABS: Calcium 9.2 mg/dL (8.6-10.3); Potassium 4.5 mEq/L (3.5-5.1)
[2020-06-23] MEDS: *HR* Heparin 5,000 UNIT/ML VIAL SQ SCH ×3 (05:22→21:32)
[2020-06-23] MEDS: Aspirin Enteric Coated 81 MG Tablet PO SCH (07:43)
[2020-06-23] MEDS: Finasteride 5 MG TABLET PO SCH (07:43)
[2020-06-23] MEDS: BuPROPion XL (24 HR) 150 MG TABLET PO SCH (07:43)
[2020-06-23] MEDS: Cyanocobalamin (B-12) 1,000 MCG TABLET PO SCH (07:43)
[2020-06-23] MEDS: Cholecalciferol (D-3) 1,000 UNIT (25MCG) TABLET PO SCH (07:43)
[2020-06-23] MEDS: Insulin LISPRO 300 UNITS/3 ML VIAL SUBQ SCH ×4 (07:44→21:21)
[2020-06-23] MEDS: *HR* OxyCODONE/APAP 10/325 TABLET PO PRN ×2 (07:45→21:33)
[2020-06-23] MEDS: Lactulose Oral Soln 20 GM/30 ML UDC PO SCH (07:45)
[2020-06-23] MEDS: Budesonide/Formoterol 160/4.5 1 PUFF INH IH SCH ×2 (07:53→21:38)
[2020-06-23] MEDS: Ipratropium/Albuterol Neb 3 ML IH PRN ×2 (11:57→21:38)
[2020-06-23] MEDS: polyethylene glycoL 3350 17 GM POWD.PACK PO SCH (17:25)
[2020-06-23] MEDS: Baclofen 10 MG TABLET PO SCH (21:33)
[2020-06-23] MEDS: Magnesium Oxide 400 MG TABLET PO SCH (21:34)
[2020-06-24] MEDS: *HR* OxyCODONE/APAP 10/325 TABLET PO PRN (05:33)
[2020-06-24] MEDS: *HR* Heparin 5,000 UNIT/ML VIAL SQ SCH (05:33)
[2020-06-24] MEDS: Ipratropium/Albuterol Neb 3 ML IH PRN ×2 (05:36→15:37)
[2020-06-24 05:42] LABS: Basophils % 0.5 %; Eosinophils # 0.1 K/mcL (0.0-0.6); Eosinophils % 2.2 %; Hematocrit 25.5 % (37.5-50.1); Hemoglobin 8.2 g/dL (12.9-16.9); Immature Granulocytes % 0.5 % (0-4); Lymphocytes # 0.6 K/mcL (0.6-4.6); Lymphocytes % 9.8 %; Mean Corpuscular HGB Conc 32.2 g/dL (31.6-35.5); Mean Corpuscular Hemoglobin 28.8 pg (28.0-33.3); Mean Corpuscular Volume 89.5 fL (83.0-100.0); Mean Platelet Volume 8.6 fL (9.4-12.4); Monocytes # 0.7 K/mcL (0.0-1.3); Monocytes % 10.1 %; Neutrophils # 4.9 K/mcL (1.6-8.9); Platelet Count 218 K/mcL (140-400); Red Blood Count 2.85 M/mcL (4.19-5.50); Red Cell Distribution Width 14.5 % (11.5-14.5); Segmented Neutrophils % 76.9 %; White Blood Count 6.4 K/mcL (4.3-11.1)
[2020-06-24 06:00] LABS: Calcium 9.1 mg/dL (8.6-10.3); Potassium 4.4 mEq/L (3.5-5.1)
[2020-06-24] MEDS: Insulin LISPRO 300 UNITS/3 ML VIAL SUBQ SCH ×2 (08:30→12:08)
[2020-06-24] MEDS: Cholecalciferol (D-3) 1,000 UNIT (25MCG) TABLET PO SCH (08:32)
[2020-06-24] MEDS: BuPROPion XL (24 HR) 150 MG TABLET PO SCH (08:32)
[2020-06-24] MEDS: Lactulose Oral Soln 20 GM/30 ML UDC PO SCH (08:32)
[2020-06-24] MEDS: Cyanocobalamin (B-12) 1,000 MCG TABLET PO SCH (08:33)
[2020-06-24] MEDS: polyethylene glycoL 3350 17 GM POWD.PACK PO SCH (08:33)
[2020-06-24] MEDS: Finasteride 5 MG TABLET PO SCH (08:33)
[2020-06-24] MEDS: Aspirin Enteric Coated 81 MG Tablet PO SCH (08:33)
[2020-06-24] MEDS: Budesonide/Formoterol 160/4.5 1 PUFF INH IH SCH (09:43)
[2020-06-24 10:51] VITALS: BP 124/61
== END 2020-06-24 16:15 | disposition home health service (06) | DRG 682 ==
LOC: 2ANU → SUATTDRO 22:17
PROVIDERS: ADMIT Internal Medicine; ATTEND Family Medicine

== ENCOUNTER 2020-10-05 19:38 | Inpatient (IN) ==
[2020-10-05] MEDS ORDERED: Ondansetron 4 MG/2 ML VIAL IVP PRN (21:57)
[2020-10-05] MEDS ORDERED: Naloxone 0.4 MG/ML INJ IVP PRN (21:57)
[2020-10-05] MEDS ORDERED: Acetaminophen 325 MG TABLET PO PRN (21:57)
[2020-10-05] MEDS ORDERED: Melatonin 3 MG TABLET PO PRN (21:57)
[2020-10-05] MEDS ORDERED: *HR* Dextrose 50 % in Water (Vial) 50 ML VIAL IVP PRN (23:04)
[2020-10-05] MEDS ORDERED: D5% in Water 1,000 ML IVC PRN (23:04)
[2020-10-05] MEDS ORDERED: Dextrose Gel 15 GM/37.5 ML TUBE PO PRN ×2 (23:04)
[2020-10-05] MEDS ORDERED: *HR* LORazepam 0.5 MG TABLET PO PRN (23:11)
[2020-10-06] MEDS: Nystatin POWDER 30 GM BOTTLE TP SCH ×4 (00:45→21:06)
[2020-10-06] MEDS: *HR* OxyCODONE/APAP 7.5/325 TABLET PO PRN ×2 (04:13→14:14)
[2020-10-06 05:32] LABS: Basophils % 0.1 %; Hematocrit 31.7 % (37.5-50.1); Hemoglobin 9.5 g/dL (12.9-16.9); Immature Granulocytes % 0.3 % (0-4); Lymphocytes # 0.2 K/mcL (0.6-4.6); Lymphocytes % 2.2 %; Mean Corpuscular Hemoglobin 28.5 pg (28.0-33.3); Mean Corpuscular Volume 95.2 fL (83.0-100.0); Mean Platelet Volume 9.8 fL (9.4-12.4); Monocytes # 0.1 K/mcL (0.0-1.3); Monocytes % 0.7 %; Neutrophils # 10.2 K/mcL (1.6-8.9); Platelet Count 191 K/mcL (140-400); Red Blood Count 3.33 M/mcL (4.19-5.50); Red Cell Distribution Width 14.6 % (11.5-14.5); Segmented Neutrophils % 96.7 %; White Blood Count 10.5 K/mcL (4.3-11.1)
[2020-10-06 05:54] LABS: Albumin 3.6 g/dL (3.5-5.7); Albumin/Globulin Ratio 1.4 (1.1-2.2); Bilirubin,Total 0.6 mg/dL (0.3-1.0); Calcium 8.8 mg/dL (8.6-10.3); Globulin 2.5 g/dL (2.4-3.5); Magnesium 1.8 mg/dL (1.6-2.6); Potassium 4.6 mEq/L (3.5-5.1); Total Protein 6.1 g/dL (6.4-8.9)
[2020-10-06] MEDS ORDERED: Albuterol 2.5 MG/3 ML NEBULIZER IH PRN (07:47)
[2020-10-06] MEDS: predniSONE 20 MG TABLET PO SCH (08:28)
[2020-10-06] MEDS: Azithromycin 500 MG in 0.9 % Sodium Chloride 250 ML IVPB SCH (08:30)
[2020-10-06] MEDS ORDERED: Azithromycin 500 MG VIAL ONE (08:30)
[2020-10-06] MEDS: Insulin DETEMIR 100 UNIT/ML X5UNITS SUBQ SCH ×2 (08:51→21:03)
[2020-10-06] MEDS: Insulin LISPRO 300 UNITS/3 ML VIAL SUBQ SCH ×4 (08:52→21:05)
[2020-10-06] MEDS: Ipratropium/Albuterol Neb 3 ML IH SCH ×3 (09:45→22:01)
[2020-10-06] MEDS: carvediloL 25 MG TABLET PO SCH (17:27)
[2020-10-06] MEDS: *HR* Heparin 5,000 UNIT/ML VIAL SQ SCH (17:27)
[2020-10-06] MEDS: Furosemide 20 MG/2 ML VIAL IVP SCH (21:04)
[2020-10-06] MEDS: Budesonide/Formoterol 160/4.5 1 PUFF INH IH SCH (22:01)
[2020-10-07 03:38] LABS: Calcium 8.4 mg/dL (8.6-10.3); Magnesium 1.9 mg/dL (1.6-2.6); Phosphorous 2.4 mg/dL (2.7-4.5); Potassium 3.8 mEq/L (3.5-5.1)
[2020-10-07] MEDS: Ipratropium/Albuterol Neb 3 ML IH SCH ×4 (03:53→22:32)
[2020-10-07] MEDS: *HR* Heparin 5,000 UNIT/ML VIAL SQ SCH ×2 (05:07→16:53)
[2020-10-07] MEDS: *HR* OxyCODONE/APAP 7.5/325 TABLET PO PRN ×2 (05:11→20:28)
[2020-10-07] MEDS: Cyanocobalamin (B-12) 1,000 MCG TABLET PO SCH (09:08)
[2020-10-07] MEDS: predniSONE 20 MG TABLET PO SCH (09:08)
[2020-10-07] MEDS: Cholecalciferol (D-3) 1,000 UNIT (25MCG) TABLET PO SCH (09:08)
[2020-10-07] MEDS: Aspirin Enteric Coated 81 MG Tablet PO SCH (09:08)
[2020-10-07] MEDS: carvediloL 25 MG TABLET PO SCH ×2 (09:08→16:53)
[2020-10-07] MEDS: Azithromycin 500 MG in 0.9 % Sodium Chloride 250 ML IVPB SCH (09:08)
[2020-10-07] MEDS: Insulin LISPRO 300 UNITS/3 ML VIAL SUBQ SCH ×7 (09:09→20:34)
[2020-10-07] MEDS: Furosemide 20 MG/2 ML VIAL IVP SCH ×2 (09:09→20:14)
[2020-10-07] MEDS: Insulin DETEMIR 100 UNIT/ML X5UNITS SUBQ SCH ×2 (09:09→20:17)
[2020-10-07] MEDS: Nystatin POWDER 30 GM BOTTLE TP SCH ×3 (09:10→20:16)
[2020-10-07] MEDS: Budesonide/Formoterol 160/4.5 1 PUFF INH IH SCH ×2 (09:47→22:32)
[2020-10-07 09:50] LABS: ABG Base Excess 7 mEq/L (-2 to 3); ABG HCO3 33 mEq/L (21-27); ABG Oxygen Saturation 97 % (95-98); ABG PCO2 54 mmHg (35-45); ABG PO2 89 mmHg (85-104); ABG TCO2 35 mEq/L (20-26)
[2020-10-08 02:57] LABS: BUN/Creatinine Ratio 29 (6-26); Blood Urea Nitrogen 39 mg/dL (8-23); Calcium 8.4 mg/dL (8.6-10.3); Carbon Dioxide 30 mEq/L (23-29); Chloride 99 mEq/L (98-107); Glucose 115 mg/dL (70-105); Magnesium 1.9 mg/dL (1.6-2.6); Osmolality,Calculated 292 (280-300); Phosphorous 2.2 mg/dL (2.7-4.5); Potassium 3.8 mEq/L (3.5-5.1); Sodium 136 mEq/L (136-145); eGFR For African Americans > 60 (> 60); eGFR For Non-African Americans 52 (> 60)
[2020-10-08] MEDS: Ipratropium/Albuterol Neb 3 ML IH SCH ×3 (04:23→16:30)
[2020-10-08] MEDS: *HR* Heparin 5,000 UNIT/ML VIAL SQ SCH (06:48)
[2020-10-08] MEDS: Aspirin Enteric Coated 81 MG Tablet PO SCH (07:41)
[2020-10-08] MEDS: Cholecalciferol (D-3) 1,000 UNIT (25MCG) TABLET PO SCH (07:41)
[2020-10-08] MEDS: predniSONE 20 MG TABLET PO SCH (07:46)
[2020-10-08] MEDS: Azithromycin 500 MG in 0.9 % Sodium Chloride 250 ML IVPB SCH (07:46)
[2020-10-08] MEDS: Cyanocobalamin (B-12) 1,000 MCG TABLET PO SCH (07:46)
[2020-10-08] MEDS: carvediloL 25 MG TABLET PO SCH (07:46)
[2020-10-08] MEDS: Furosemide 20 MG/2 ML VIAL IVP SCH (07:47)
[2020-10-08] MEDS: Insulin LISPRO 300 UNITS/3 ML VIAL SUBQ SCH ×3 (07:49→11:58)
[2020-10-08] MEDS: Insulin DETEMIR 100 UNIT/ML X5UNITS SUBQ SCH (07:50)
[2020-10-08] MEDS: Nystatin POWDER 30 GM BOTTLE TP SCH (08:12)
[2020-10-08] MEDS: Budesonide/Formoterol 160/4.5 1 PUFF INH IH SCH (10:50)
[2020-10-08 16:04] VITALS: BP 154/89; PULSE 93; TEMP 97.5; O2SAT 95
== END 2020-10-08 16:55 | disposition home or self-care (01) | DRG 291 ==
LOC: 2NENU → SUATTDRO 10-06 16:28
PROVIDERS: ADMIT Internal Medicine; ATTEND Internal Medicine